=== PATIENT | male | born 1960 | race Caucasian/White ===

== ENCOUNTER 2020-07-06 08:31 | Emergency (ER) | payer OTHER, SELFPAY ==
--- NOTE | ~2020-07-06 | XR_ITS ---
XR chest 1V portable DATE: 07/06/2020 09:18 INDICATION: Chest pain TECHNIQUE: Portable AP chest on 07/06/2020 at 0928 hours COMPARISON: 05/30/2018 CT thorax FINDINGS: Normal heart size. No hilar or mediastinal enlargement. No pulmonary infiltrate or consolid ation, pleural effusion or pulmonary vascular congestion or pneumothorax. IMPRESSION: No active cardiopulmonary disease Reviewed, dictated and finalized at location A.
[2020-07-06 08:32] VITALS: BP 128/84; PULSE 56; RESP 20; TEMP 36.6; O2SAT 98
--- NOTE | 2020-07-06 08:41 | ED.DIZZY ---
HPI - Dizziness General Chief Complaint: Chest Pain Stated Complaint: vomiting dizzy Time Seen by Provider: 07/06/20 08:45 Source: patient Mode of arrival: ambulatory Limitations: no limitations History of Present Illness HPI Narrative: 59-year-old man with a history of type 2 diabetes, smoking, vertigo and Palacios's palsy comes in today complaining of chest pressure in the left side of his chest that radiates to his left arm. States that he feels dizzy and has at times felt nauseated had vomiting and sweating. He denies prior similar symptoms except for intermittent vertigo. He denies shortness of breath. States he feels no abdominal pain and has had no fever, cough or cold symptoms, diarrhea, dysuria, hematuria, back pain, or syncope. MD elicited complaint: dizziness and vertigo Pertinent past history: other ( Vertigo, left Palacios's palsy) Onset (ago): hour(s) (11) Timing: sudden onset Severity: moderate Description: other ( pressure radiating to left arm above the elbow.) Context: at rest Relieving factors: nothing Associated symptoms: nausea, vomiting, diaphoresis and chest pain Associated neuro symptoms: gait ataxia ( Intermittent mild) Related Data Home Medications Medication Instructions Recorded Confirmed albuterol sulfate 2 puff INHALATION DAILY 07/06/20 07/06/20 Allergies Allergy/AdvReac Type Severity Reaction Status Date / Time No Known Allergies Allergy Verified 07/06/20 08:45 Review of Systems Review of Systems: All systems reviewed & are unremarkable except as noted in HPI and below Constitutional: Constitutional: Denies chills and Denies fever(s) Eyes: Eyes: Denies change in vision and Denies photophobia ENT: Denies dysphagia, Denies nasal congestion and Denies sore throat Cardiovascular: Cardiovascular: Reports as per HPI, Reports chest pain and Reports radiating jaw, neck or arm pain Respiratory: Respiratory: Denies cough and Denies dyspnea Gastrointestinal: Gastrointestinal: Denies abdominal pain, Denies diarrhea, Reports nausea and Reports vomiting Genitourinary: Genitourinary: Denies hematuria and Denies dysuria Musculoskeletal: Musculoskeletal: Denies back pain, Denies arthralgias and Denies joint swelling Integumentary/Breasts: Skin/Breast: Denies pruritus, Denies erythema and Denies rash Neurologic: Reports vertigo, Reports dizziness, Denies syncope, Reports focal weakness ( chronic left facial.) and Denies numbness Hematologic/Lymphatic: Hematologic/Lymphatic: Denies easy bleeding and Denies easy bruising Allergic/Immunologic: Allergic/Immunologic: Denies lip swelling and Denies throat swelling PMFSH Past Medical History Medical History (Updated 07/06/20 @ 09:19 by Tato Galeas MD) Left-sided Palacios's palsy T2DM (type 2 diabetes mellitus) unable to tolerate metformin Vertigo Surgical History Surgical History (Updated 07/06/20 @ 09:19 by Tato Galeas MD) H/O hernia repair Social History Social History (Updated 07/06/20 @ 09:13 by Tato Galeas MD) Smoking status: Current every day smoker Alcohol intake: never Substance use: never Living arrangements: with family Occupation/Education: occupation 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 Exam Const: General: healthy appearing and alert; No diaphoretic Orientation/consciousness: patient oriented x3 Limitations: no limitations Other: Mild acute distress. HENMT: Head: normal to inspection Ears: TM's normal bilaterally and EAC's normal General nose exam: Normal nares present Mouth: Yes moist mucous membranes Throat: posterior oropharynx normal Other: Very mild left facial paresis Eyes: Conjunctivae: conjunctivae normal Pupils: Equal, round and reactive pupils present EOM: EOMs intact bilaterally Chest: Chest palpation & inspection: normal inspection of the chest and abnormal inspection of the chest Resp: Effort & Inspection: normal respiratory effort and
--- NOTE | 2020-07-06 08:44 | ECG_ITS ---
Measurements Intervals [place] Rate: P: [place]: QRS: QRSD: T: QT: QTc: Interpretive Statements SINUS RHYTHM WITH FIRST DEGREE AV BLOCK INFERIOR ST ELEVATION MYOCARDIAL INFARCT- ACUTE BASELINE ARTIFACT- II, AVL, AVF ABNORMAL ECG Electronically Signed On 07-07-2020 12:31:21 CDT by Ahmet ALBERTS
[2020-07-06 08:58] LABS: Basophils Absolute Auto 0.06 K/mm3 (0.00-0.10); Basophils Percent Auto 0.6 % (0.0-1.0); Eosinophils Absolute Auto 0.06 K/mm3 (0.02-0.50); Eosinophils Percent Auto 0.6 % (1.0-6.0); Hemoglobin 16.4 g/dL (14.0-18.0); Immature Granulocyte Absolute 0.02 K/mm3 (0.00-0.00); Immature Granulocyte Percent A 0.2 % (0.0-0.0); Lymphocytes Absolute Auto 2.08 K/mm3 (1.10-4.50); Lymphocytes Percent Auto 21.1 % (18.0-42.0); Mean Corpuscular HGB Conc 33.5 g/dL (32.0-36.0); Mean Corpuscular Hemoglobin 32.3 pg (27.0-31.0); Mean Corpuscular Volume 96.6 fL (78.0-102.0); Mean Platelet Volume 9.7 fl (8.7-11.0); Monocytes Absolute Auto 0.73 K/mm3 (0.10-0.90); Monocytes Percent Auto 7.4 % (2.0-11.0); Neutrophils Absolute Auto 6.9 K/mm3 (1.7-7.2); Neutrophils Percent Auto 70.1 % (50.0-70.0); Platelet Count Result 234 K/mm3 (150-420); Red Blood Count 5.07 M/mm3 (4.70-6.10); Red Cell Distribution Width 13.2 % (11.6-14.4); White Blood Count 9.8 K/mm3 (4.8-10.8)
[2020-07-06 09:02] VITALS: PULSE 62
[2020-07-06] MEDS: ASPIRIN 81 MG CHEWABLE TABLET 324 MG PO (09:06)
[2020-07-06] MEDS: ENOXAPARIN 100 MG/ML SYRINGE SUB-Q (09:07)
[2020-07-06 09:12] LABS: Partial Thromboplastin Time 25.6 SEC (23.90-30.70); Prothrombin Time 10.7 Seconds (9.50-12.10)
[2020-07-06 09:15] VITALS: BP 122/64; PULSE 54; RESP 20; TEMP 36.9; O2SAT 96
[2020-07-06 09:17] LABS: D Dimer 0.59 mg/L (0.19-0.50)
--- NOTE | 2020-07-06 09:19 | PC.NURSE ---
call to [facility] at 0[address] dr black spoke with dr higuera, pt to transfer directly to veterinary laboratory diagnostician,
[2020-07-06 09:20] LABS: Alanine Aminotransferase 88 U/L (16-63); Albumin Level 3.9 g/dL (3.4-5.0); Alkaline Phosphatase 52 U/L (46-116); Anion Gap 8 mmol/L (8-16); Aspartate Amino Transferase 55 U/L (15-37); Bilirubin,Total 0.4 mg/dL (0.00-1.00); Blood Urea Nitrogen 15 mg/dL (7-18); Calcium 9.1 mg/dL (8.5-10.1); Carbon Dioxide 28 mmol/L (21-32); Chloride 99 mmol/L (98-108); Estimated CRCL calculation 69 ml/min; Estimated Glomerular Filt Rate 58; Glucose 190 mg/dL (70-99); NT Pro B Type Natriuretic Pept 583 pg/mL (0-125); Osmolality Calculated 285 mOsm/kg (285-295); Potassium 4.7 mmol/L (3.5-5.1); Sodium 135 mmol/L (136-145); Total Protein 7.5 g/dL (6.4-8.2)
--- NOTE | 2020-07-06 09:20 | PC.NURSE ---
saas here for transport, report to beata. pt loaded.
== END 2020-07-06 09:26 | disposition short-term general hospital (02) ==
PROVIDERS: Emergency Provider Emergency Medicine; PCP Family Medicine
DX: I21.3 ST elevation (STEMI) myocardial infarction of unspecified site (principal); G51.0 Bell's palsy; F17.200 Nicotine dependence, unspecified, uncomplicated; E11.9 Type 2 diabetes mellitus without complications
CPT/HCPCS: 36415; 71045; 80053; 83880; 84484; 85025; 85380; 85610; 85730; 93005; 96372; 99285; A9270; J1650

== ENCOUNTER 2020-07-06 11:37 | Inpatient (IN) | payer OTHER, SELFPAY ==
[2020-07-06] VITALS (27 sets, daily range): BP systolic 88–155; BP diastolic 59–100; PULSE 50–88; RESP 12–32; TEMP 36.1–36.9; O2SAT 93–100; BMI 33.3
--- NOTE | ~2020-07-06 | XR_ITS ---
EXAMINATION: XR chest 1V portable DATE: 07/08/2020 16:10 INDICATION: Pacer placement. TECHNIQUE: A single frontal view of the chest was obtained. COMPARISON: Chest single view 07/06/2020, chest CT 05/30/2018 FINDINGS: There is mild atelectasis at left lung base. No pleural effusion or pneumothorax. The heart size is normal. There is a left chest wall pacer with leads in the right atrium and right ventricle. IMPRESSION: 1. Mild atelectasis at left lung base. Reviewed, dictated and finalized at location A.
--- NOTE | ~2020-07-06 | XR_ITS ---
EXAMINATION: XR chest 2V DATE: 07/09/2020 07:49 INDICATION: Pacemaker insertion TECHNIQUE: PA and lateral views of the chest are obtained. COMPARISON: 07/08/2020 FINDINGS: The lungs are free of acute opacities. There is no pleural effusion or pneumothorax. The ca rdiomediastinal silhouette is normal. There is mild thoracic spondylosis. A chronic L1 compression fr acture is noted. A dual-lead cardiac pacemaker of the left chest wall ends with leads in expected loc ations. IMPRESSION: 1. No acute cardiopulmonary abnormality. Reviewed, dictated and finalized at location A.
[2020-07-06] MEDS: EPTIFIBATIDE 0.75 MG/ML 75 MG/100 ML VIAL 17.12 MG IV CONT ×3 (11:00→21:41)
--- NOTE | 2020-07-06 11:37 | ECG_ITS ---
Measurements Intervals [place] Rate: 54 P: 29 UT: 316 QRS: -22 QRSD: 91 T: 102 QT: 435 QTc: 413 Interpretive Statements SINUS RHYTHM WITH SECOND DEGREE AV BLOCK TYPE I ([place] WITH 3:2, 2:1, 3:2 AV CO CONDUCTION) INFERIOR ST ELEVATION MYOCARDIAL INFARCT ABNORMAL ECG Electronically Signed On 07-07-2020 7:25:22 CDT by Ahmet Borden D.O.
--- NOTE | 2020-07-06 11:40 | ADMGEN ---
This patient, Emmanuel Verduzco Jr., was admitted to Intensive Care Unit-11. Patient/family oriented to hospital policies and general routines including ID bracelet, bed and alarms, visiting hours, pain management, procedures, bathroom and other care routines, personal items, smoking policy, room service/diet, and visiting hours. Information on how to activate the Rapid Response Team has been discussed. Patient/Family are encouraged to report perceived risks to care and to ask questions if they do not understand what they are told or what they should do.
--- NOTE | 2020-07-06 11:41 | PM.IMHP ---
H&P: HPI History of Present Illness Date/Time: 07/06/20 11:41 Chief Complaint: Chest pain Narrative: This is a 59-year-old man who apparently does not have any previous history of cardiac pathology who is transferred from [place] is a emergency room this morning in the setting of acute inferior wall myocardial infarction. Patient's history is obtained briefly as he is being prepared for emergency coronary angiography. He states that he was at home in his usual state of what he thinks is reasonable health and started to experience retrosternal chest pain last evening at about 11:00 p.m.. The patient for some reason thought the pain was a neurological problem. He states he thought this because in the past he had some Palacios's palsy and was suspicious mostly of a neurological issue. Because of ongoing symptoms he came to the emergency room at [place] this morning where his electrocardiogram was obviously diagnostic of acute inferior infarction. Unfortunately he presented therefore of rather late into the course of the event about 11 hours and to symptom onset. The patient's being brought to the cardiac catheterization lab in this setting. He is reporting that the chest pain that was going on through the night is still present but is starting to wane. In this setting and emergency angiogram has been recommended. 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 Meds Home Medications and Allergies Home Medications Medication Instructions Recorded Confirmed Type albuterol sulfate 2 puff INHALATION DAILY 07/06/20 07/06/20 History Allergies Allergy/AdvReac Type Severity Reaction Status Date / Time No Known Allergies Allergy Verified 07/06/20 08:45 Exam Const: General: no acute distress and uncomfortable Other: Well-developed well-nourished white male appears to be a little bit older than his stated age reporting mild residual chest pain appears to be otherwise rather comfortable. HENMT: Mouth: Yes moist mucous membranes Eyes: Sclera: sclerae normal Pupils: Equal, round and reactive pupils present Neck: Neck: supple and no JVD Thyroid: thyroid normal Resp: Effort & Inspection: normal respiratory effort Auscultation: clear to auscultation bilaterally Cardio: Rate: regular rate and bradycardic Rhythm: regular rhythm GI: GI Palp: Yes Soft to palpation Auscultation: normal bowel sounds Skin: General skin exam: normal color Neuro: Cognition (Neuro): normal cognition Extrem: General: normal to inspection Assessment and Plan Additional Plan 59-year-old man with: Acute inferior wall myocardial infarction with risk factors of non insulin-dependent diabetes and heavy cigarette smoking. Patient presents unfortunately very late in the course of the event. Emergency angiography and revascularization are now planned. Fortunato Trevino MD FACC
--- NOTE | 2020-07-06 11:46 | WPDCARDPROC ---
Cardiac Cath Procedure Note Date of procedure:: 07/06/20 Performing physician:: Fortunato Trevino MD Indication:: Inferior wall ST-elevation Brief clinical history:: This is a 59-year-old patient with a history of type 2 diabetes and heavy cigarette smoking presenting late in the course of acute inferior wall myocardial infarction with chest pain that began 11 hours prior to arrival here at the hospital. Procedure Procedure performed:: Emergency coronary angiography Emergency PCI FRANCISCO) to the proximal/ostial right coronary artery. Attempt at extraction thrombectomy Distal balloon PTCA of clotted RPDA Sedation/Medication given:: Fentanyl 50 mg Versed 2 mg Access site:: Right femoral artery Estimated blood loss:: 15-20 cc Procedure note:: Patient was brought to the cardiac catheterization lab in the emergency setting from the ambulance stretcher. He was fully clothed and had to be disrobed in the carry a laboratory manager. Following this he was placed on the laboratory manager table in the supine position the right femoral triangle was prepped and draped in the usual sterile fashion. Anesthesia was provided with 1% lidocaine infiltrated locally. After this the right femoral artery was punctured and a 6 Belarusian vascular sheath was placed. I used a 5 Bel[place]ian FL4 catheter to engage and inject the left coronary artery in multiple projections. I then used a 6 [place]ian JR4 guiding catheter to engage and inject the right coronary artery. Following this PCI of the right coronary artery was recommended and carried out as detailed below. Prior to PCI the patient received 180 mg of oral Brilinta and he was anticoagulated with bolus and infusion of Angiomax for procedural anticoagulation. During the procedure the patient received 2 boluses of intracoronary Integrilin as well as started on IV Integrilin infusion. Following completion of the PCI the patient's sheath was sutured into position he was takes ICU for post OK PCI recovery in critical condition. Following the procedure he was free of chest pain and had no cardiovascular complaints. Findings:: Hemodynamics: Blood pressure was 142/82 the left ventricle was not entered during this procedure for LV pressure The left main coronary artery is nicely patent The left anterior descending is a medium caliber vessel extending down to the apex there is mild luminal irregularity in the LAD but no flow-limiting disease was identified. The circumflex is a medium caliber artery giving rise to 2 marginal branches. There is a focal discrete 80% stenosis in the 2nd OM which is the larger of the 2 marginal branches. The right coronary artery is 100% occluded proximally. There is about 70% stenosis proximal to the total occlusion just after the ostium of the vessel as well. Intervention: As stated above I initially engaged the right coronary artery with 6 Bel[place]ian JR4 guiding catheter. Following this the occlusion was crossed easily with a 0.014 BMW guidewire balloon inflation resulted in pentecostal of flow into the entire right coronary artery system. Angiographically the rest of the vessel could that be seen and it was obvious there was a large thrombotic burden in the trunk of the vessel distal to the total occlusion. The procedure was technically challenging at this point because the guiding catheter was occluding the proximal vessel because of the proximal stenosis described above. On 2 occasions the position of the catheter was lost and the wire had to be repositioned into the distal RCA. At that point I selected to change guiding catheters 1st attempted to engage the artery with a AL1 guide which was unsuccessful following this I used a AR1 guide for the rest of the procedure. Vessel was then rewired. It was obvious angiographically at that point that there was thrombotic embolization of both the RPDA and RPL branches. The RPDA was occluded in the mid to distal portion the RPL branch in the midportion as well. I placed a 2nd BMW wir
[2020-07-06] MEDS: SODIUM CHLORIDE 0.9% IV 1,000 ML 125 ML IV CONT (12:32)
--- NOTE | 2020-07-06 13:03 | WPDCNINT ---
Assessment and Plan Assessment and plan (1) ST elevation myocardial infarction (STEMI): Qualifiers: Involved coronary artery: unspecified coronary artery Qualified Code(s): I21.3 - ST elevation (STEMI) myocardial infarction of unspecified site Code(s): I21.3 - ST elevation (STEMI) myocardial infarction of unspecified site Status: Acute Assessment and Plan: Patient with acute inferior wall CO status post PTCA/PCI with FRANCISCO x2 to the occluded portion of the proximal RCA. P -atient had large thrombotic but because of the late presentation which unfortunately resulted distal embolization of both the RPDA and RPL branches. Some flow was restored into the RPDA with balloon dilatation. -He will continue to be on Integrilin for 24 hours. Patient also has an unrelated 80% stenosis of the OM 2 which he may be a candidate for PCI and states fashion at the later date. Patient did go into a second-degree AV block in the labor economics teacher. -continue intact infusion for total of 24 hours until 11:00 a.m. on 07/07/2020 (2) T2DM (type 2 diabetes mellitus): Code(s): E11.9 - Type 2 diabetes mellitus without complications Status: Acute Assessment and Plan: Controlled with diet exercise (3) Tobacco abuse: Code(s): Z72.0 - Tobacco use Status: Acute Assessment and Plan: Patient has a 60 pack year history of smoking he used to smoke 2 packets per day into 30 years -denies any illicit drug use or alcohol -I did addictions counselor assistant him on cessation of smoking and also discussed with him the details along with his the bad effects of nicotine in the cigarettes. Patient stated he is going to think of quitting smoking -nicotine patch has been ordered Additional Plan Discussed with patient and his and updated them with patient's condition plan of. Code status: Full code Critical care time spent: 43 minutes This dictation may have been done utilizing a voice recognition system. Attempts have been made to correct errors. However, there may be uncorrected grammatical, spelling, and recognition errors present. Due to a high probability of clinically significant, life threatening deterioration, the patient required my highest level of preparedness to intervene emergently and I personally spent this critical care time directly and personally managing the patient. This critical care time included obtaining a history; examining the patient; pulse oximetry; ordering and review of studies; arranging urgent treatment with development of a management plan; evaluation of patient's response to treatment; frequent reassessment; and discussions with other providers. It was exclusive of separately billable procedures and treating other patients and teaching time. Please see Assessment and Plan section and the rest of the note for further information on patient assessment and treatment Bit Sharpener Operator Consult Note Consult date: 07/06/20 Time Seen: 12:04 Reason for consult: Acute inferior wall CO status post PTCA/PCI with FRANCISCO x2 of the occluded portion of the proximal RCA. HPI: Emmanuel Verduzco Jr. is a 59 year old male borderline type 2 diabetes, tobacco abuse, no known previous cardiac history presented from [place] [facility] with the complaint of that radiated to his left arm. Pain was associated with dizziness, nausea, vomiting and diaphoresis. He denies any shortness of breath. Patient developed and had these ongoing symptoms since 11:00 p.m. on 07/05/2020. EKG in the [place] [facility] showed ST T changes. Patient was transferred to the ICU for further management Patient seen and examined the ICU, patient is a pleasant gentleman, denies any chest pain, shortness of breath, dizziness, nausea, vomiting. Patient states that he smokes 2 pack of cigarettes per day for 40 years, denies any alcohol use or illicit drug use. 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
[2020-07-06 18:09] LABS: Troponin I > 80.000 ng/mL (0.000-0.034)
[2020-07-06] MEDS: MORPHINE SULFATE (*CRX) 2 MG/ML INJ IV PUSH (20:40)
[2020-07-06] MEDS: TICAGRELOR 90 MG TABLET PO (20:40)
[2020-07-07] VITALS (15 sets, daily range): BP systolic 99–121; BP diastolic 52–75; PULSE 46–64; RESP 14–29; TEMP 36.4–37; O2SAT 93–98
--- NOTE | 2020-07-07 | ECHO_ITS ---
Patient Info Name: Emmanuel Verduzco Age: 59 years : 1960 Gender: Male Ht: 70 in Wt: 226 lbs BSA: 2.28 m2 HR: 49 bpm BP: 102 / 68 mmHg Heart Rhythm: Sinus Rhythm Technical Quality: Fair Exam Date: 07/07/2020 9:45 AM Exam Location: [facility] Pulmonary Patient Status: Inpatient Admit Date: 07/06/2020 Staff Ordering Physician: Fortunato Trevino MD Hand Cultivator: Cecelia Caputo RDCS Attending Provider: Fortunato Trevino MD Referring Physician: Uriel YOUNGBLOOD; Exam Type: CA echo doppler color flow Study Info Indications I45.5 - Other specified heart block I23.8 - Other current complications following acute myocardial infarction Complete two-dimensional, color flow and Doppler transthoracic echocardiogram is performed. Summary 1. Complete two-dimensional, color flow and Doppler transthoracic echocardiogram is performed. 2. Left ventricular systolic function is mildly reduced, estimated at 45-50%. 3. The inferior segment is akinetic. 4. Right ventricular chamber dimension is moderately enlarged. 5. Right ventricular systolic function is reduced. 6. There is trace mitral valve regurgitation. Left Ventricle Left ventricular chamber dimension is normal. Left ventricular systolic function is mildly reduced, estimated at 45-50%. The left ventricular diastolic function is normal. The inferior segment is akinetic. Right Ventricle Right ventricular chamber dimension is moderately enlarged. Right ventricular systolic function is reduced. Left Atria Left atrial chamber dimension is normal. Right Atria Right atrial chamber dimension is mildly enlarged. Aortic Valve The aortic valve is normal. Pulmonic Valve The pulmonic valve is not well visualized. Mitral Valve The mitral valve has normal leaflets. There is trace mitral valve regurgitation. Tricuspid Valve The tricuspid valve leaflets are normal. Pericardium/Pleural The pericardium appears normal. Aorta The aortic root size at the sinus of Valsalva is normal. Left Ventricular Outflow Tract Name Value Normal LVOT 2D LVOT Diameter 2.0 cm LVOT Doppler LVOT Peak Velocity 92 cm/s LVOT Peak Gradient 3 mmHg LVOT Mean Gradient 2 mmHg LVOT VTI 18 cm LVOT VTI/AV VTI Ratio 1.1 LVOT Stroke Volume 59 ml LVOT CO 2.8 l/min LVOT CI 1.3 l/min/m2 Pulmonic Valve Name Value Normal RVOT Doppler RVOT Peak Gradient 1 mmHg PV Doppler PV Peak Velocity 89 cm/s PV Peak Gradient 3 mmHg Mitral Lyndsey
--- NOTE | 2020-07-07 00:51 | ECG_ITS ---
Measurements Intervals [place] Rate: 64 P: [place]: 0 QRS: -38 QRSD: 98 T: 114 QT: 383 QTc: 397 Interpretive Statements SINUS RHYTHM WITH FIRST DEGREE AV BLOCK VENTRICULAR PREMATURE COMPLEXES LOW QRS VOLTAGE IN PRECORDIAL LEADS INFERIOR ST ELEVATION MYOCARDIA INFARCT- ACUTE ABNORMAL ECG Electronically Signed On 07-07-2020 7:27:38 CDT by Ahmet Borden D.O.
--- NOTE | 2020-07-07 01:00 | ECG_ITS ---
Measurements Intervals [place] Rate: 58 P: SD: 0 QRS: -38 QRSD: 96 T: 114 QT: 387 QTc: 381 Interpretive Statements SINUS RHYTHM WITH 2ND DEGREE AV BLOCK, MOBITZ TYPE II INFERIOR ST ELEVATION MYOCARDIAL INFARCT- ACUTE ABNORMAL ECG Electronically Signed On 07-07-2020 7:31:40 CDT by Ahmet Borden D.O.
[2020-07-07] MEDS: EPTIFIBATIDE 0.75 MG/ML 75 MG/100 ML VIAL 17.12 MG IV CONT ×2 (03:45→09:50)
[2020-07-07 04:35] LABS: Basophils Percent Auto 0.4 % (0.2-1.2); Eosinophils Absolute Auto 0.1 K/mm3 (0-0.3); Eosinophils Percent Auto 0.7 % (0-4.4); Hemoglobin 13.9 g/dL (14.0-18.0); Immature Granulocyte Absolute 0.03 K/mm3 (0.00-0.031); Immature Granulocyte Percent A 0.3 % (0-0.5); Lymphocytes Absolute Auto 2.13 K/mm3 (0.9-3.2); Lymphocytes Percent Auto 19.9 % (18.3-44.2); Mean Corpuscular HGB Conc 33.9 g/dl (32-36); Mean Corpuscular Hemoglobin 32.6 pg (26-34); Mean Corpuscular Volume 96.2 fl (80-100); Mean Platelet Volume 10.2 fl (7.4-10.4); Monocytes Absolute Auto 1.2 K/mm3 (0.1-0.6); Monocytes Percent Auto 10.7 % (2.6-8.5); Neutrophils Absolute Auto 7.3 K/mm3 (1.3-6.7); Platelet Count Result 199 k/mm3 (150-375); Red Blood Count 4.26 M/mm3 (4.6-6.20); Red Cell Distribution Width 13.2 % (11.5-14.5); White Blood Count 10.7 K/mm3 (4.5-10.0)
[2020-07-07 04:46] LABS: Anion Gap 4 mmol/L (8-16); Blood Urea Nitrogen 13 mg/dL (9-20); Calcium 8.8 mg/dL (8.4-10.2); Carbon Dioxide 27 mmol/L (22-30); Chloride 104 mmol/L (98-107); Estimated CRCL calculation 98 ml/min; Estimated Glomerular Filt Rate > 60; Glucose 172 mg/dL (75-110); Magnesium 1.7 mg/dL (1.6-2.3); Potassium 4.3 mmol/L (3.4-5.0); Sodium 135 mmol/L (137-145)
--- NOTE | 2020-07-07 05:11 | ECG_ITS ---
Measurements Intervals [place] Rate: P: [place]: QRS: QRSD: T: QT: QTc: Interpretive Statements SINUS RHYTHM WITH FIRST DEGREE AV BLOCK INFERIOR ST ELEVATION MYOCARDIAL INFARCT- ACUTE BASELINE ARTIFACT- II, AVL, AVF ABNORMAL ECG Electronically Signed On 07-07-2020 12:31:21 CDT by Ahmet ALBERTS
--- NOTE | 2020-07-07 06:32 | ECG_ITS ---
Measurements Intervals [place] Rate: 45 P: [place]: 0 QRS: -32 QRSD: 95 T: 116 QT: 477 QTc: 415 Interpretive Statements SINUS RHYTHM WITH COMPLETE HEART BLOCK JUNCTION ESCAPE RHYTHM INFERIOR ST ELEVATION MYOCARDIAL INFARCT- ACUTE BASELINE ARTIFACT- I, II, III ABNORMAL ECG Electronically Signed On 07-07-2020 9:29:29 CDT by Ahmet Borden D.O.
--- NOTE | 2020-07-07 07:26 | PM.PNCARD ---
Progress Note: A&P Additional Plan 59-year-old man with: Coronary artery disease inferior wall infarction presenting very late in the course of the event. Despite what we can do with regarding revascularization he has had a very high troponin rise which I am not surprised about he also has developed complete heart block. It is likely that he will require implantation of a pacemaker before discharge for this reason. Obviously beta-blockers will be held in this situation. I would like to watch this for at least another [address] his device. There is a possibility with the 1st 48 hours after the event this could resolve but it is unlikely. Will give a dose of IV Lasix this morning as he has some pulmonary rales on exam Fortunato Trevino MD [facility] Subjective Date/time seen: Date of service: 07/07/20 07:26 Interval history: Follow-up visit in this 59-year-old man with: Coronary artery disease presenting with acute inferior wall myocardial infarction unfortunately late in the course of the event. Patient underwent angiographically successful PCI with stenting of the proximal occluded segment of the RCA. There was significant thrombosis in the vessel with distal embolization of both the RPDA and RPL. He has been treated with intravenous Integrilin for that. He also has a unrelated mid circumflex lesion of about 80% in the OM branch. This morning the patient feels and looks fairly well. He was complaining of significant back pain which is somewhat better now that he is able to get up in a chair. No further chest pain. Feels slightly short of breath this morning. The patient had second-degree AV block Mobitz type 1 immediately upon leaving the cardiac catheterization lab. Overnight that has progressed to complete heart block. He has a narrow QRS escape rhythm with a heart rate of a about 45. Spoke to the patient at length about this as a consequence of his RCA infarction. If this persists obviously he will require a pacemaker device before discharge. Exam Const: General: comfortable and no acute distress Other: Well-developed well-nourished white male seated in a chair HENMT: Mouth: Yes moist mucous membranes Eyes: Sclera: sclerae normal Pupils: Equal, round and reactive pupils present Neck: Neck: supple and no JVD Thyroid: thyroid normal Other: Normal carotid upstrokes no apparent bruits over the neck Resp: Effort & Inspection: normal respiratory effort Auscultation: clear to auscultation bilaterally Cardio: Rate: bradycardic Rhythm: regular rhythm GI: GI Palp: Yes Soft to palpation Auscultation: normal bowel sounds Skin: General skin exam: normal color Neuro: Cognition (Neuro): normal cognition Extrem: General: normal to inspection Objective Data Vital Signs Vital Signs: Vital Signs - 24 hr 07/06/20 11:37 07/06/20 12:00 07/06/20 12:01 Temperature 36.1 C L Pulse Rate 50 L 58 L 57 L Respiratory Rate 18 14 Blood Pressure 126/76 115/81 Pulse Oximetry 97 98 07/06/20 12:22 07/06/20 13:22 07/06/20 14:00 Temperature Pulse Rate 57 L 75 71 Respiratory Rate 22 H 18 Blood Pressure 124/82 144/98 H Pulse Oximetry 96 98 07/06/20 14:46 07/06/20 14:51 07/06/20 14:56 Temperature Pulse Rate 74 67 75 Respiratory Rate 20 21 H 18 Blood Pressure 148/96 H 136/98 H 155/93 H Pulse Oximetry 100 99 99 07/06/20 15:00 07/06/20 15:05 07/06/20 15:10 Temperature Pulse Rate 75 79 76 Respiratory Rate 18 32 H 19 Blood Pressure 145/96 H 137/95 H 148/93 H Pulse Oximetry 99 99 98 07/06/20 15:15 07/06/20 15:21 07/06/20 15:22 Temperature Pulse Rate 73 65 79 Respiratory Rate 16 16 20 Blood Pressure 144/99 H 133/94 H 135/88 Pulse Oximetry 100 100 100 07/06/20 15:46 07/06/20 16:00 07/06/20 17:00 Temperature Pulse Rate 78 74 75 Respiratory Rate 14 20 Blood Pressure 136/85 142/100 H Pulse Oximetry 100 100 07/06/20 17:33 07/06/20 18:00 07/06/20 19:00 Te
[2020-07-07] MEDS: FUROSEMIDE INJ 40 MG/4 ML VIAL 20 MG IM (07:50)
[2020-07-07] MEDS: TICAGRELOR 90 MG TABLET PO ×2 (07:50→20:54)
[2020-07-07] MEDS: ASPIRIN 81 MG CHEWABLE TABLET PO (07:50)
[2020-07-07] MEDS: ROSUVASTATIN 10 MG TABLET 20 MG PO (07:50)
[2020-07-07] MEDS: lisinopriL 5 MG TABLET PO (07:51)
--- NOTE | 2020-07-07 09:47 | WPDINTPN ---
Progress Note: A&P Assessment and Plan (1) ST elevation myocardial infarction (STEMI): Qualifiers: Involved coronary artery: unspecified coronary artery Qualified Code(s): I21.3 - ST elevation (STEMI) myocardial infarction of unspecified site Code(s): I21.3 - ST elevation (STEMI) myocardial infarction of unspecified site Status: Inactive Assessment and Plan: Patient with acute inferior wall NC status post PTCA/PCI with FRANCISCO x2 to the occluded portion of the proximal RCA. P -atient had large thrombotic but because of the late presentation which unfortunately resulted distal embolization of both the RPDA and RPL branches. Some flow was restored into the RPDA with balloon dilatation. -He will continue to be on Integrilin for 24 hours. Patient also has an unrelated 80% stenosis of the OM 2 which he may be a candidate for PCI and states fashion at the later date. 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 -patient on Integrilin infusion till 11:00 a.m. this morning (2) T2DM (type 2 diabetes mellitus): Code(s): E11.9 - Type 2 diabetes mellitus without complications Status: Acute Assessment and Plan: Controlled with diet exercise (3) Tobacco abuse: Code(s): Z72.0 - Tobacco use Status: Acute Assessment and Plan: Patient has a 60 pack year history of smoking he used to smoke 2 packets per day into 30 years -denies any illicit drug use or alcohol -I did family service counselor him on cessation of smoking and also discussed with him the details along with his the bad effects of nicotine in the cigarettes. Patient stated he is going to think of quitting smoking -nicotine patch has been ordered (4) Complete heart block: Code(s): I44.2 - Atrioventricular block, complete Status: Acute Assessment and Plan: Patient progressed to complete AV block overnight, does have narrow QRS escape rhythm with a heart rate of 45-50 beats per minute. -cardiology has evaluated the patient -recommended watching him for the next 24 hours and decide if he needs a pacemaker implantation Additional Plan Discussed with patient and his and updated them with patient's condition plan of. Code status: Full code Critical care time spent: 32 minutes This dictation may have been done utilizing a voice recognition system. Attempts have been made to correct errors. However, there may be uncorrected grammatical, spelling, and recognition errors present. Due to a high probability of clinically significant, life threatening deterioration, the patient required my highest level of preparedness to intervene emergently and I personally spent this critical care time directly and personally managing the patient. This critical care time included obtaining a history; examining the patient; pulse oximetry; ordering and review of studies; arranging urgent treatment with development of a management plan; evaluation of patient's response to treatment; frequent reassessment; and discussions with other providers. It was exclusive of separately billable procedures and treating other patients and teaching time. Please see Assessment and Plan section and the rest of the note for further information on patient assessment and treatment Subjective Date/time seen: 07/07/20 09:47 Interval history: Reason for consult: Acute inferior wall NC status post PTCA/PCI with FRANCISCO x2 of the occluded portion of the proximal RCA. 07/08/2019: Patient has been bradycardic through the night with second-degree AV block Mobitz type 1, progressed to complete heart block overnight. Patient has narrow QRS escape rhythm with a heart rate of 45-50 beats per minute. Is denies chest, nausea, vomiting, diaphoresis. Patient does complains of some cough and shortness of breath. Patient is sitting up in the chair waiting breakfast awaiting breakfast Review of Systems Review of Systems: All systems reviewed & are unremarkable
[2020-07-08] VITALS (21 sets, daily range): BP systolic 94–113; BP diastolic 38–75; PULSE 53–84; RESP 12–94; TEMP 36.3–37.1; O2SAT 22–97
[2020-07-08 05:28] LABS: INR 1.1; Prothrombin Time 14.6 Seconds (11.1-14.7)
[2020-07-08 05:29] LABS: Partial Thromboplastin Time 30.5 SECONDS (22.3-36.8)
[2020-07-08 05:38] LABS: Basophils Percent Auto 0.2 % (0.2-1.2); Eosinophils Absolute Auto 0.1 K/mm3 (0-0.3); Eosinophils Percent Auto 0.6 % (0-4.4); Hematocrit 36.2 % (42.0-52.0); Hemoglobin 12.6 g/dL (14.0-18.0); Immature Granulocyte Absolute 0.06 K/mm3 (0.00-0.031); Immature Granulocyte Percent A 0.5 % (0-0.5); Lymphocytes Absolute Auto 2.27 K/mm3 (0.9-3.2); Lymphocytes Percent Auto 18.8 % (18.3-44.2); Mean Corpuscular HGB Conc 34.8 g/dl (32-36); Mean Corpuscular Volume 94.8 fl (80-100); Mean Platelet Volume 10.6 fl (7.4-10.4); Monocytes Absolute Auto 1.6 K/mm3 (0.1-0.6); Monocytes Percent Auto 13.2 % (2.6-8.5); Neutrophils Absolute Auto 8.1 K/mm3 (1.3-6.7); Neutrophils Percent Auto 66.7 % (45.5-73.1); Platelet Count Result 184 k/mm3 (150-375); Red Blood Count 3.82 M/mm3 (4.6-6.20); Red Cell Distribution Width 13.2 % (11.5-14.5); White Blood Count 12.1 K/mm3 (4.5-10.0)
[2020-07-08 05:40] LABS: Alanine Aminotransferase 68 U/L (4-50); Albumin Level 3.7 g/dL (3.5-5.1); Alkaline Phosphatase 38 U/L (38-126); Anion Gap 6 mmol/L (8-16); Aspartate Amino Transferase 184 U/L (17-59); Blood Urea Nitrogen 23 mg/dL (9-20); Calcium 8.7 mg/dL (8.4-10.2); Carbon Dioxide 26 mmol/L (22-30); Chloride 101 mmol/L (98-107); Estimated CRCL calculation 73 ml/min; Estimated Glomerular Filt Rate > 60; Glucose 161 mg/dL (75-110); Magnesium 1.7 mg/dL (1.6-2.3); Phosphorus 2.8 mg/dL (2.5-4.5); Potassium 3.7 mmol/L (3.4-5.0); Sodium 133 mmol/L (137-145)
--- NOTE | 2020-07-08 07:10 | WPDINTPN ---
Progress Note: A&P Assessment and Plan (1) ST elevation myocardial infarction (STEMI): Qualifiers: Involved coronary artery: unspecified coronary artery Qualified Code(s): I21.3 - ST elevation (STEMI) myocardial infarction of unspecified site Code(s): I21.3 - ST elevation (STEMI) myocardial infarction of unspecified site Status: Inactive Assessment and Plan: Patient with acute inferior wall MS status post PTCA/PCI with FRANCISCO x2 to the occluded portion of the proximal RCA. -patient was continued on Integrilin for 24 hours and was discontinued yesterday morning Patient also has an unrelated 80% stenosis of the OM 2 which he may be a candidate for PCI and states fashion at the later date. 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 -currently chest pain-free -continue aspirin, lisinopril, Crestor, Brilinta (2) Complete heart block: Code(s): I44.2 - Atrioventricular block, complete Status: Acute Assessment and Plan: Patient progressed to complete AV block which has been persistent. EKG was checked this morning and was consistent -his current heart rate is in 50s and adequate blood pressure -discussed with cardiology and plan to place permanent pacemaker today -continue ICU telemetry monitoring until permanent pacemakers placed (3) T2DM (type 2 diabetes mellitus): Code(s): E11.9 - Type 2 diabetes mellitus without complications Status: Acute Assessment and Plan: Controlled with diet exercise Will add sliding scale insulin and check HbA1c (4) COPD (chronic obstructive pulmonary disease): Code(s): J44.9 - Chronic obstructive pulmonary disease, unspecified Status: Acute Assessment and Plan: Patient appears to have diagnosis of COPD and is on albuterol p.r.n. inhaler at home I will order albuterol and Spiriva (5) Tobacco abuse: Code(s): Z72.0 - Tobacco use Status: Acute Assessment and Plan: Patient has a 60 pack year history of smoking he used to smoke 2 packets per day into 30 years -denies any illicit drug use or alcohol -patient was counseled on cessation of smoking. Patient stated he is going to think of quitting smoking -nicotine patch has been ordered on patient's request Additional Plan Code status: Full code Critical care time spent: 30 minutes This dictation may have been done utilizing a voice recognition system. Attempts have been made to correct errors. However, there may be uncorrected grammatical, spelling, and recognition errors present. Due to a high probability of clinically significant, life threatening deterioration, the patient required my highest level of preparedness to intervene emergently and I personally spent this critical care time directly and personally managing the patient. This critical care time included obtaining a history; examining the patient; pulse oximetry; ordering and review of studies; arranging urgent treatment with development of a management plan; evaluation of patient's response to treatment; frequent reassessment; and discussions with other providers. It was exclusive of separately billable procedures and treating other patients and teaching time. Please see Assessment and Plan section and the rest of the note for further information on patient assessment and treatment Subjective Date/time seen: 07/08/20 0710 Overnight events reviewed. Afebrile Denies any new complaints today. Feels hungry and wants to eat. Denies any chest pain or pain at the site of cardiac catheterization. Review of system is positive for dry cough, occasional inability to take deep breaths but does not describe it as pain and states its chronic. All other systems were reviewed and were negative Vitals acceptable Continues to be in complete heart block with heart rate in 50s and adequate blood pressure. He is sitting in chair without any symptoms or complaints at this time Interval history: Ac
--- NOTE | 2020-07-08 07:42 | ECG_ITS ---
Measurements Intervals [place] Rate: 55 P: NH: 0 QRS: -23 QRSD: 95 T: 113 QT: 444 QTc: 426 Interpretive Statements SINUS RHYTHM WITH COMPLETE HEART BLOCK JUNCTIONAL ESCAPE RHYTHM DELAYED PRECORDIAL R/S TRANSITION LOW QRS VOLTAGE IN PRECORDIAL LEADS INFERIOR ST ELEVATION MYOCARDIAL INFARCT- ACUTE ABNORMAL ECG Electronically Signed On 07-08-2020 11:01:17 CDT by Ahmet Borden D.O.
[2020-07-08] MEDS: ASPIRIN 81 MG CHEWABLE TABLET PO (08:36)
[2020-07-08] MEDS: TICAGRELOR 90 MG TABLET PO ×2 (08:37→20:55)
[2020-07-08] MEDS: ROSUVASTATIN 10 MG TABLET 20 MG PO (08:37)
[2020-07-08] MEDS: lisinopriL 5 MG TABLET PO (08:37)
[2020-07-08 08:54] LABS: Hemoglobin A1C 7.1 % (<5.7)
--- NOTE | 2020-07-08 09:07 | PM.PNCARD ---
Progress Note: A&P Assessment and Plan (1) STEMI (ST elevation myocardial infarction): Code(s): I21.3 - ST elevation (STEMI) myocardial infarction of unspecified site Status: Acute Assessment and Plan: Admitted with acute inferior myocardial infarction, late presentation, 07/06/2020. Occluded RCA, significant thrombus with distal embolization, Status post [address] Trevino. Has an unrelated mid circumflex lesion in OM branch that can be intervened upon at a later date. No further chest pain Soft blood pressure; will give some IV fluids this morning prior to conscious sedation/pacemaker implant. NH complicated by complete heart block. (2) Complete heart block: Code(s): I44.2 - Atrioventricular block, complete Status: Acute Assessment and Plan: Patient continues to have complete heart block with no evidence of recovery of his conduction system. Discussed implantation of a permanent pacemaker either today or tomorrow and patient prefers to get it done today. Reviewed procedure with the patient, of function of the pacemaker, conscious sedation, and venogram. Reviewed risks of pacemaker implant with patient. These include breathing problems, allergic reactions, particularly a risk of bleeding and hematoma because of being on aspirin and Brilinta, infection, pneumothorax, cardiac puncture, need for unanticipated surgery, lead dislodgement among others. In addition since the header RV infarct it may be difficult to find an area that has good sensing and pacing thresholds. Patient desires to proceed. (3) Dysuria: Code(s): R30.0 - Dysuria Status: Acute Assessment and Plan: Complains of dark urine and some dysuria, will check a UA. (4) Tobacco abuse: Code(s): Z72.0 - Tobacco use Status: Acute Assessment and Plan: Patient uses tobacco and likely has COPD but states he is doing reasonably well without his cigarettes. Subjective Date/time seen: 07/08/20 09:07 Interval history: Follow-up visit in this 59-year-old man with: Coronary artery disease presenting with acute inferior wall myocardial infarction unfortunately late in the course of the event. Patient underwent angiographically successful PCI with stenting of the proximal occluded segment of the RCA. There was significant thrombosis in the vessel with distal embolization of both the RPDA and RPL. He has been treated with intravenous Integrilin for that. He also has a unrelated mid circumflex lesion of about 80% in the OM branch. 07/07/2020: This morning the patient feels and looks fairly well. He was complaining of significant back pain which is somewhat better now that he is able to get up in a chair. No further chest pain. Feels slightly short of breath this morning. The patient had second-degree AV block Mobitz type 1 immediately upon leaving the cardiac catheterization lab. Overnight that has progressed to complete heart block. He has a narrow QRS escape rhythm with a heart rate of a about 45. Spoke to the patient at length about this as a consequence of his RCA infarction. If this persists obviously he will require a pacemaker device before discharge. Date of service 07/08/2020: Patient feels well, some chronic shortness of breath, and has trouble lying down because of chronic back pain. No chest pain. Remains in complete heart block with an escape rhythm in the 50s. Says he has dark urine, with some burning, wonders if there is any blood in it. Hungry! No h/o clavicular fracture. Echo: 1. Complete two-dimensional, color flow and Doppler transthoracic echocardiogram is performed. 2. Left ventricular systolic function is mildly reduced, estimated at 45-50%. 3. The inferior segment is akinetic. 4. Right ventricular chamber dimension
--- NOTE | 2020-07-08 09:13 | WPDMODSED ---
Moderate Sedation Note-Pt Data Patient Data Diagnosis: Complete heart block Inferior STEMI 07/06/2020 Present Complaint: Complete heart block Procedure to be performed/Plan: Conscious sedation Venogram Implantation of a permanent dual-chamber pacemaker Allergies Allergy/AdvReac Type Severity Reaction Status Date / Time No Known Allergies Allergy Verified 07/06/20 08:45 Home Medications Medication Instructions Recorded Confirmed Type albuterol sulfate 2 puff INHALATION DAILY 07/06/20 07/06/20 History Current Medications: Active Medications Albuterol (Albuterol Sulfate (*Sp) Aerosol 1 Puff) 2 puff INHALATION QIDRT PRN PRN Reason: Shortness Of Breath Aspirin (Aspirin 81 Mg Chewable Tablet) 81 mg PO DAILY@0800 [facility] Last Admin: 07/08/20 08:36 Dose: 81 mg Documented by: Dextrose (Dextrose 50% 25 Gm/50 Ml Syringe) 12.5 gm IV PUSH PRN PRN; Protocol PRN Reason: Hypoglycemia Glucagon (Glucagon For Inj 1 Mg Vial) 1 mg IM PRN PRN; Protocol PRN Reason: Hypoglycemia Glucose (Glucose Oral Gel 15 Gm Of Glucse In 37.5 Gm Tube) 15 gm PO PRN PRN; Protocol PRN Reason: Hypoglycemia Dextrose (Dextrose 5% 1,000 Ml) 1,000 mls @ 100 mls/hr IVPB PRN PRN; Protocol PRN Reason: Hypoglycemia Cefazolin Sodium (Ancef 1 Gm/D5w 50 Ml Pm) 1 gm in 50 mls @ 100 mls/hr IVPB ONCE ONE Stop: 07/08/20 09:30 Sodium Chloride (Normal Saline Iv) 1,000 mls @ 100 mls/hr IV CONT .Q10H [facility] Insulin Aspart (Insulin Aspart (*Bkc) 100 Units/Ml) 3 - 6 units SUB-Q Q6HR [facility]; Protocol Lisinopril (Lisinopril 5 Mg Tablet) 5 mg PO DAILY [facility] Last Admin: 07/08/20 08:37 Dose: 5 mg Documented by: Nicotine (Nicotine (*Pbkc) 21 Mg Patch) 1 patch TRANSDERM QAM [facility] Last Admin: 07/07/20 17:58 Dose: Not Given Documented by: Nitroglycerin (Nitroglycerin Sl 0.4 Mg Tablet) 0.4 mg SUBLINGUAL Q5MIN PRN PRN Reason: Chest Pain Rosuvastatin Calcium (Rosuvastatin 10 Mg Tablet) 20 mg PO DAILY [facility] Last Admin: 07/08/20 08:37 Dose: 20 mg Documented by: Ticagrelor (Ticagrelor 90 Mg Tablet) 90 mg PO Q12HR [facility] Last Admin: 07/08/20 08:37 Dose: 90 mg Documented by: Tiotropium [place] (Tiotropium [place] 18 Mcg Cap Diskus) 1 cap INHALATION QAM [facility] Last Admin: 07/08/20 08:27 Dose: 1 cap Documented by: Sedation/Anesthesia: No previous sedation/anesthesia problems (including family history). 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 Gender identity (if verbalized by the patient): Male Sexual Orientation (if Verbalized by the Patient): Straight or Heterosexual Spiritual care concerns: No Mod Sed Physical Exam Physical Exam Pre Procedural Exam: Normal: Appearance, Eyes, Ears, Nose, Neck, Throat, Lungs, Heart Size, Heart Rhythm, Neuro Exam, Abdomen, Extremities and Skin and Variation: Airway (Edentulous) and Heart Rate (Bradycardia, heart rate 50s) Hours since solid foods: 12 Hours since liquid intake: 12 Internal Medicine - PN: Obj Da Vital Signs Vital Signs: Vital Signs - 24 hr 07/07/20 10:00 07/07/20 12:00 07/07/20 14:00 Temperature 97.8 F Pulse Rate 49 L 52 L 53 L Respiratory Rate 20 18 21
[2020-07-08] MEDS: SODIUM CHLORIDE 0.9% IV 1,000 ML 125 ML IV CONT (09:15)
[2020-07-08] MEDS: MAGNESIUM SULF 1 GM/D5W 100 ML 1 GM/100 ML BAG IVPB (10:40)
[2020-07-08 11:08] LABS: Add Urine Microscopic? YES; Appearance Urine Cloudy (Clear); Bilirubin Urine Negative (Negative); Blood Urine 3+ (Negative); Budding Yeast Urine Present /hpf; Color Urine Amber (Yellow); Glucose Urine UA 1+ mg/dL (Negative); Ketones Urine Negative (Negative); Leukocyte Esterase Ur Negative LEU/UL (NEGATIVE); Mucus Urine Few /lpf; Nitrate Urine Negative (Negative); Protein Urine 2+ mg/dL (Negative); RBC Urine >75 /hpf (0-2); Specific Grav Ur 1.026 (1.001-1.035); Squamous Epithelial Cell Urine Few /hpf (Few); Urobilinogen Urine Negative mg/dL (<2.0); WBC Clumps Urine Present /HPF; WBC Urine >75 /hpf (0-3)
[2020-07-08 11:48] LABS: Glucose Point of Care 176 (65-105)
--- NOTE | 2020-07-08 13:17 | PC.NURSE ---
Pt to greenhouse laborer via bed.
--- NOTE | 2020-07-08 15:45 | PM.OP ---
Procedure Note - Brief Procedure Note - Brief Date of procedure: 07/08/20 Pre-op diagnosis: Acute inferior wall infarction Complete heart block Post-op diagnosis: same Procedure performed: venogram, conscious sedation, implantation of a permanent dual-chamber pacemaker Description of procedure: Uneventful dual-chamber pacemaker implant. Patient was noted to have paroxysmal atrial flutter. Anesthesia: local ( With conscious sedation) Surgeon: Lee Ann Granger MD
--- NOTE | 2020-07-08 15:48 | ECG_ITS ---
Measurements Intervals [place] Rate: 60 P: -21 [place]: 178 QRS: -68 QRSD: 161 T: 93 QT: 483 QTc: 483 Interpretive Statements ELECTRONIC ATRIAL PACEMAKER WITH INHIBITION ELECTRONIC VENTRICULAR PACEMAKER NO FURTHER INTERPRETATION IS POSSIBLE ATYPICAL ECG Electronically Signed On 07-08-2020 16:29:38 CDT by Ahmet Borden D.O.
--- NOTE | 2020-07-08 17:13 | PC.NURSE ---
Report received from DELFINO Carvalho @ [id number]. Pt transferred to IMU Rm 203 from lab animal technician. Report was given to DELFINO Casiano and DELFINO Vance @ [id number]
[2020-07-08 17:18] LABS: Glucose Point of Care 134 (65-105)
--- NOTE | 2020-07-08 18:56 | PC.NURSE ---
This patient, Emmanuel Verduzco Jr., was received from lab tech on 07/08/20 at 1645. Patient was previously in ICU-11 and after permanent pacemaker placed he was moved to 203. Bedside report received from both Lucero Tattoo Designer RN and DELFINO Prieto. Patient/family oriented to unit policies and routines
[2020-07-08 19:55] LABS: Glucose Point of Care 151 (65-105)
--- NOTE | 2020-07-08 20:09 | PM.PROC ---
Procedure Note - Detailed Date of procedure: 07/08/20 Pre-op diagnosis: Acute inferior wall infarction Complete heart block Post-op diagnosis: same Procedure performed: conscious sedation venogram implantation of a permanent dual Description of procedure: HISTORY: 59-year-old male admitted a few days ago with an acute inferior myocardial infarction, late presentation , status post thrombectomy and 2 RCA stents. He went into second-degree heart block then 3rd degree heart block on the day of admission. Remains in complete heart block and we have recommended pacemaker implant. PROCEDURE PERFORMED: Conscious sedation Venogram Placement of a permanent dual-chamber pacemaker SITE: Left prepectoral area MEDICATIONS GIVEN IN BUSINESS CENTER REPRESENTATIVE: Ancef 1 gram IV piggyback CONSCIOUS SEDATION: Assessment: The patient has no history of anesthesia problems. The patient's oropharynx is clear. The patient was deemed to be a good candidate for conscious sedation. The patient had continuous hemodynamic monitoring during the procedure. Start time: 1401 Completion time: 1524 Total conscious sedation time: 83 minutes Medications: Versed 4 mg, fentanyl 100 mcg IV push Trained observer: Thai Schumacher RN Outcome: The patient tolerated the procedure well with no complications. PROCEDURE: After informed consent , the patient was brought to the production laborer and the left prepectoral area was prepped and draped in usual fashion . The patient received preop antibiotic and conscious sedation . The left prepectoral area was anesthetized with lidocaine. A venogram was performed showing the course of the left subclavian vein,which was patent. Next a skin incision was made and carried down to the prepectoral fascia. Hemostasis was obtained using electrocautery . The pacer pocket was formed. The left subclavian vein was accessed with the micropuncture technique; I was not able to access it through the pocket but obtained access with a separate stick further cephalad,and a J-tip guide wire was passed into the inferior vena cava under fluoroscopic guidance . The needle was withdrawn . A 2nd wire was introduced in an identical fashion. Both wires were pulled into the pocket. A 7 Stateless Stateless safety sheath was passed over the lateral wire, the wire withdrawn, and the right ventricular lead was passed into the inferior vena cava under fluoroscopic guidance . The lead was then prolapsed through the tricuspid valve and advanced On to the right ventricular septum, since patient likely will pace ventricularly most of the time and this may be more physiologic. When suitable sensing and pacing thresholds were obtained, it was screwed into place. No extra cardiac stimulation was obtained using 10 volts. The sheath was withdrawn. Next, another 7 Stateless safety sheath was passed over the more medial wire, the wire withdrawn, and the right atrial lead was passed into the inferior vena cava under fluoroscopic guidance. Right atrial lead was then pulled back to the level of the right atrium and manipulated into the right atrial appendage . When suitable sensing and pacing thresholds were obtained , it was screwed into place . No extra cardiac stimulation was obtained using 10 volts. The sheath was withdrawn. Unfortunately the atrial lead needed to be repositioned when it became dislodged. he also developed transient atrial fib flutter which resolved spontaneously.Both leads were secured to the prepectoral fascia using 2-0 silk over their respective sleeves. The pocket was cleansed with antibiotic containing solution . The pulse generator was introduced into the operative field, and both leads were secured into the generator . A gentle tug showed the leads were securely fastened. The device was introduced into the pocket. The subcutaneous tissues were closed in a double layer fashion with interrupted sutures, using 2-0 Vicryl suture , and the skin was close
[2020-07-08] MEDS: ceFAZolin 2 GM/D5W 50 ML 2 GM/50 ML BAG IVPB (21:42)
[2020-07-09] VITALS (7 sets, daily range): BP systolic 101–117; BP diastolic 60–67; PULSE 66–83; RESP 16–18; TEMP 36.6–36.8; O2SAT 96–98
[2020-07-09 04:58] LABS: Hematocrit 32.8 % (42.0-52.0); Hemoglobin 11.4 g/dL (14.0-18.0); Mean Corpuscular HGB Conc 34.8 g/dl (32-36); Mean Corpuscular Hemoglobin 32.1 pg (26-34); Mean Corpuscular Volume 92.4 fl (80-100); Mean Platelet Volume 10.3 fl (7.4-10.4); Platelet Count Result 178 k/mm3 (150-375); Red Blood Count 3.55 M/mm3 (4.6-6.20); White Blood Count 10.5 K/mm3 (4.5-10.0)
[2020-07-09 05:13] LABS: Alanine Aminotransferase 42 U/L (4-50); Albumin Level 3.5 g/dL (3.5-5.1); Alkaline Phosphatase 38 U/L (38-126); Anion Gap 3 mmol/L (8-16); Aspartate Amino Transferase 87 U/L (17-59); Bilirubin,Total 1.1 mg/dL (0.2-1.3); Blood Urea Nitrogen 19 mg/dL (9-20); Calcium 8.4 mg/dL (8.4-10.2); Carbon Dioxide 27 mmol/L (22-30); Chloride 103 mmol/L (98-107); Estimated CRCL calculation 81 ml/min; Estimated Glomerular Filt Rate > 60; Glucose 127 mg/dL (75-110); Magnesium 2.1 mg/dL (1.6-2.3); Potassium 3.9 mmol/L (3.4-5.0); Sodium 133 mmol/L (137-145)
[2020-07-09] MEDS: ceFAZolin 2 GM/D5W 50 ML 2 GM/50 ML BAG IVPB (05:39)
[2020-07-09 08:17] LABS: Glucose Point of Care 144 (65-105)
[2020-07-09] MEDS: TICAGRELOR 90 MG TABLET PO (08:23)
[2020-07-09] MEDS: ROSUVASTATIN 10 MG TABLET 20 MG PO (08:23)
[2020-07-09] MEDS: lisinopriL 5 MG TABLET PO (08:24)
[2020-07-09] MEDS: ASPIRIN 81 MG CHEWABLE TABLET PO (08:24)
--- NOTE | 2020-07-09 08:59 | PM.DS ---
DS: Admitting Diagnosis Admitting Diagnosis Admitting Diagnosis: Inferior wall [place] DS: Discharge Diagnosis Discharge Diagnosis (1) STEMI (ST elevation myocardial infarction): Code(s): I21.3 - ST elevation (STEMI) myocardial infarction of unspecified site Status: Acute (2) Complete heart block: Code(s): I44.2 - Atrioventricular block, complete Status: Acute (3) Pacemaker: Code(s): Z95.0 - Presence of cardiac pacemaker Status: Acute DS: Summary Hospital Course Reason for hospitalization: Acute inferior wall myocardial infarction Hospital Course: This is a 59-year-old man who [place] [facility] [place] [facility] with acute inferior wall myocardial infarction. He began to have chest pain unfortunately about 11 hours before hospital presentation. He was transported [place] by ambulance where he was taken immediately to the cardiac catheterization lab. He underwent emergency angiography that demonstrated 100% occlusion of the proximal right coronary artery. He also has about 80% stenosis in the 2nd OM branch of his circumflex. Emergency PCI was carried out with 2 drug-eluting stents deployed in the proximal to ostial segment of the RCA. Because the vessel was closed for prolonged amount of time there was a lot of thrombotic burden in the vessel and PCI of this was difficult and challenging. It was also challenging because guiding catheter positioning in the ostium of the right coronary artery was difficult. The clot was treated with balloon dilatation in the distal PDA branch to break up as much clot as we could and intracoronary followed by intravenous Integrilin. Attempts to advance a export catheter to extract thrombus into the vessel were unsuccessful. Following this he had a sizable infarction by troponin criteria which of course was not unexpected given the late presentation. He also went on to develop complete heart block. Upon arrival he had second-degree AV block Mobitz type 1 which by the 1st 24 hours had progressed to 3rd degree AV block. His escape rhythm was a narrow QRS rhythm with a heart rate of about 45 so a pacemaker was not felt to be emergent but it complete heart block did not resolve and so pacemaker implantation was obviously necessary. Yesterday he was taken back to the environmental laboratory technician where he received implantation of a Medtronic dual-chamber pacemaker. The procedure was uneventful. Irrigation this morning shows nominal device function and the patient is ambulatory this morning and appears to be a good candidate for discharge. His medical regimen consists of course of dual anti-platelet therapy low doses of metoprolol lisinopril on a high dose of rosuvastatin. He is to restrict himself to light household activity not lift more than 20 lb for the next week he is not to lift his left arm above his shoulder for the next month. He will be given an appointment next week to come to the office for pacemaker dressing removal and I will see him in the office in about 3 weeks for follow-up. Decisions will be made in follow-up as to whether to treat his circumflex lesion medically or to consider staged PCI of that lesion. Time spent discussing smoking cessation with patient: more than 10 minutes Status at Discharge Functional status at discharge: independent ambulation Time Spent with Patient Time attestation: Total time spent providing and/or coordinating discharge services: Time spent: Greater than 30 minutes Exam Const: General: comfortable and no acute distress Other: Well-developed well-nourished white male sitting in the chair appears to be comfortable cooperative in no distress of any kind HENMT: Mouth: Yes moist mucous membranes Eyes: Sclera: sclerae normal Pupils: Equal, round and reactive pupils present Neck: Neck: supple and no JVD Thyroid: thyroid normal Other: Carotid pulses are intact bilaterally there are no audible bruits over the
[2020-07-09] MEDS: METOPROLOL SUCCINATE EXT REL 25 MG TABCR PO (09:26)
== END 2020-07-09 11:19 | disposition home or self-care (01) | DRG 174 ==
LOC: ANHICU 12:06 → ANHIMU 07-09 09:06 → ANHICU 07-11 09:28 → ANHIMU 07-11 09:28
PROVIDERS: Internal Medicine; Internal Medicine Cardiovascular Disease; Admitting Provider Specialist; PCP Family Medicine; Visit Provider Specialist
PROC: 4A023N7 Measurement of Cardiac Sampling and Pressure, Left Heart, Percutaneous Approach (ICD-10-PCS; CPT 93452; principal; 2020-07-06 10:00)
PROC: 027035Z Dilation of Coronary Artery, One Artery with Two Drug-eluting Intraluminal Devices, Percutaneous Approach (ICD-10-PCS; 2020-07-06 10:00)
PROC: 0JH606Z Insertion of Pacemaker, Dual Chamber into Chest Subcutaneous Tissue and Fascia, Open Approach (ICD-10-PCS; CPT 33208; principal; 2020-07-08 11:30)
DX: I21.19 ST elevation (STEMI) myocardial infarction involving other coronary artery of inferior wall (principal); I25.10 Atherosclerotic heart disease of native coronary artery without angina pectoris; I48.92 Unspecified atrial flutter; I44.2 Atrioventricular block, complete; E11.9 Type 2 diabetes mellitus without complications; Z95.0 Presence of cardiac pacemaker; F17.210 Nicotine dependence, cigarettes, uncomplicated; R30.0 Dysuria; J44.9 Chronic obstructive pulmonary disease, unspecified; I44.1 Atrioventricular block, second degree
CPT/HCPCS: 33208; 36415; 71045; 71046; 80048; 80053; 81001; 82948; 83036; 83735; 84100; 84484; 85025; 85027; 85610; 85730; 93005; 93306; 93458; 94640; A9270; C1725; C1757; C1769; C1779; C1785; C1874; C1887; C1894; C9606; J0131; J0583; J0690; J1327; J1644; J1940; J2250; J2270; J3010; J3475; J7030; J7040

== ENCOUNTER 2020-07-10 09:03 | Emergency (ER) | payer OTHER, SELFPAY ==
--- NOTE | ~2020-07-10 | US_ITS ---
EXAMINATION: US pelvic limited EXAM DATE: 07/10/2020 10:06 INDICATION: Hematuria. Trouble urinating, passing clots since Tuesday. TECHNIQUE: Pelvic transabdominal sonogram was performed. There are multiple grayscale and Doppler im ages available for interpretation. There is no prior study for comparison. FINDINGS: Evaluation bladder demonstrates Ramos catheter surrounded by heterogeneous echogenicity mat erial which did not demonstrate vascularity. This is most likely a large hematoma, dimensions obtaine d on this exam at 6 x 8 cm. Sometimes large bladder clots are mechanically lysed by urology, consider consult. IMPRESSION: Large bladder hematoma surrounding Ramos. Consider urology consult. Reviewed, dictated and finalized at location B. IMPRESSION: Large bladder hematoma surrounding Ramos. Consider urology consult .
[2020-07-10 09:10] VITALS: BP 106/79; PULSE 80; RESP 19; TEMP 36.7; O2SAT 99
[2020-07-10 10:17] LABS: Basophils Absolute Auto 0.06 K/mm3 (0.00-0.10); Basophils Percent Auto 0.7 % (0.0-1.0); Eosinophils Absolute Auto 0.16 K/mm3 (0.02-0.50); Eosinophils Percent Auto 1.8 % (1.0-6.0); Hematocrit 32.1 % (40.0-54.0); Hemoglobin 10.7 g/dL (14.0-18.0); Immature Granulocyte Absolute 0.05 K/mm3 (0.00-0.00); Immature Granulocyte Percent A 0.6 % (0.0-0.0); Lymphocytes Percent Auto 16.9 % (18.0-42.0); Mean Corpuscular HGB Conc 33.3 g/dL (32.0-36.0); Mean Corpuscular Hemoglobin 31.8 pg (27.0-31.0); Mean Corpuscular Volume 95.3 fL (78.0-102.0); Mean Platelet Volume 9.9 fl (8.7-11.0); Monocytes Absolute Auto 0.86 K/mm3 (0.10-0.90); Monocytes Percent Auto 9.7 % (2.0-11.0); Neutrophils Absolute Auto 6.3 K/mm3 (1.7-7.2); Neutrophils Percent Auto 70.3 % (50.0-70.0); Platelet Count Result 190 K/mm3 (150-420); Red Blood Count 3.37 M/mm3 (4.70-6.10); Red Cell Distribution Width 12.7 % (11.6-14.4); White Blood Count 8.9 K/mm3 (4.8-10.8)
[2020-07-10 10:28] LABS: INR 1.1; Partial Thromboplastin Time 25.5 SEC (23.90-30.70); Prothrombin Time 11.5 Seconds (9.50-12.10)
--- NOTE | 2020-07-10 11:00 | PC.NURSE ---
MURRAY CATHETER FLUSHED WITH 500 ML SALINE - 500 ML OUT RED INITIALLY, THEN PINK. RETURNS TO RED
[2020-07-10 11:06] LABS: Alanine Aminotransferase 41 U/L (16-63); Albumin Level 2.9 g/dL (3.4-5.0); Alkaline Phosphatase 50 U/L (46-116); Anion Gap 9 mmol/L (8-16); Aspartate Amino Transferase 41 U/L (15-37); Bilirubin,Total 0.7 mg/dL (0.00-1.00); Blood Urea Nitrogen 19 mg/dL (7-18); Calcium 8.5 mg/dL (8.5-10.1); Carbon Dioxide 25 mmol/L (21-32); Chloride 99 mmol/L (98-108); Estimated Glomerular Filt Rate > 60; Glucose 153 mg/dL (70-99); Osmolality Calculated 281 mOsm/kg (285-295); Potassium 4.2 mmol/L (3.5-5.1); Sodium 133 mmol/L (136-145); Total Protein 6.7 g/dL (6.4-8.2)
--- NOTE | 2020-07-10 11:10 | PC.NURSE ---
[facility] CALLED FOR POSSIBLE TRANSFER
--- NOTE | 2020-07-10 11:20 | ED.MALEGU ---
HPI - Male Genitourinary General Chief complaint: Urogenital-Male Stated complaint: can't urinate after pacemaker put in Source: patient and family Mode of arrival: ambulatory History of Present Illness HPI Narrative: this is a 59-year-old male that presents with urinary retention and hematuria over the last couple of days has intensified and passing a small amount a urine with small clots with hematuria with suprapubic discomfort, not currently no flank pain no fever or chills. The patient recently was discharged from [facility] after he was transfer from a [facility] with some STEMI was seen by cardiology had stents placed and was recently started on Brilinta and aspirin. Presents today with some urinary retention and and small scant amount of urinary clots. There is no fever chills no nausea vomiting no chest pain no shortness of breath. Onset (ago): day(s) Duration: constant Location: abdomen Severity: moderate Severity scale (1-10): 6 Relieving factors: none Exacerbating factors: urination Context: new medication Associated symptoms: Reports urinary retention and blood in urine Related Data Home Medications Medication Instructions Recorded Confirmed albuterol sulfate 2 puff INHALATION DAILY 07/06/20 07/10/20 Allergies Allergy/AdvReac Type Severity Reaction Status Date / Time No Known Allergies Allergy Verified 07/06/20 08:45 Review of Systems Review of Systems: All systems reviewed & are unremarkable except as noted in HPI and below PMFSH Past Medical History Medical History Left-sided Palacios's palsy STEMI (ST elevation myocardial infarction) T2DM (type 2 diabetes mellitus) unable to tolerate metformin Vertigo Surgical History Surgical History H/O hernia repair Family History Family History Mother History of blood clots Chronic obstructive pulmonary disease Diabetes mellitus Father Chronic obstructive pulmonary disease Social History Social History Smoking packs per day: 2 Smoking cigarettes per day: 40.0 Years smoked: 48 Smoking pack-years: 96.00 Smoking status: Current every day smoker Tobacco type: cigarettes Alcohol intake: never Substance use: never 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 Gender identity (if verbalized by the patient): Male Spiritual care concerns: No Exam Const: General: cooperative, healthy appearing, comfortable, no acute distress and well developed HENMT: Head: normal to inspection Ears: hearing grossly normal bilaterally General nose exam: Normal external nose present Mouth: Yes Normal oral and palatal mucosa present Eyes: General: appearance normal, both eyes and all related structures Visual Knutson: normal visual knutson by confrontation Eyelids: eyelids normal Conjunctivae: conjunctivae normal Chest: Chest palpation & inspection: normal inspection of the chest and normal palpation of entire chest wall Resp: Effort & Inspection: normal respiratory effort and able to speak in complete sentences Auscultation: clear to auscultation bilaterally Cardio: Jugular venous distension: no JVD Palpation: normal PMI Rate: regular rate Rhythm: regular rhythm Heart sounds: S1 normal heart sound present and S2 normal heart sound present GI: Inspection: normal to inspection GI Palp: Yes abdominal tenderness ( Suprapubic) Percussion: Yes normal to percussion Auscultation: normal bowel sounds and normoactive bowel sounds Urinary Catheter: Urinary Catheter: urine with clots Back/Spine/Pelvis: Back: no CVA tenderness Skin: General skin exam: normal color and no rashes or lesions noted Neuro: General: oriented to person, oriented to place and oriented to time Psych: Appearance: gross
[2020-07-10] MEDS: SODIUM CHLORIDE 0.9% IV 1,000 ML 999 ML IV CONT (11:40)
--- NOTE | 2020-07-10 12:16 | PC.NURSE ---
HOSPITALIST CALLS BACK TO ACCEPT PATIENT
[2020-07-10 12:50] VITALS: BP 104/69; PULSE 72; O2SAT 97
== END 2020-07-10 13:04 | disposition short-term general hospital (02) ==
PROVIDERS: Emergency Provider Emergency Medicine; PCP Family Medicine
DX: R33.9 Retention of urine, unspecified (principal)
CPT/HCPCS: 36415; 76857; 80053; 85025; 85610; 85730; 96360; 99285; J7030

== ENCOUNTER 2020-07-10 14:00 | Observation (INO) | payer OTHER, SELFPAY ==
[2020-07-10] VITALS (11 sets, daily range): BP systolic 96–151; BP diastolic 56–92; PULSE 63–96; RESP 11–27; TEMP 36.2–37; O2SAT 90–100; BMI 33.0
--- NOTE | ~2020-07-10 | XR_ITS ---
EXAMINATION: XR retrograde pyelogram RT DATE: 07/10/2020 16:54 INDICATION: Hematuria. TECHNIQUE: 68 intraoperative fluoroscopic views of the abdomen and pelvis were obtained. I was not pr esent. Fluoroscopy see exposure time was 29 seconds. COMPARISON: None. FINDINGS: The right-sided retrograde pyelogram is normal. IMPRESSION: 1. Normal right-sided retrograde pyelogram. Reviewed, dictated and finalized at location A.
--- NOTE | 2020-07-10 14:00 | ADMGEN ---
This patient, Emmanuel Verduzco Jr., was admitted to Medical Room 246-01. Patient/family oriented to hospital policies and general routines including ID bracelet, bed and alarms, visiting hours, pain management, procedures, bathroom and other care routines, personal items, smoking policy, room service/diet, and visiting hours. Information on how to activate the Rapid Response Team has been discussed. Patient/Family are encouraged to report perceived risks to care and to ask questions if they do not understand what they are told or what they should do.
--- NOTE | 2020-07-10 15:21 | PC.NURSE ---
To OR per jodee, IV intact. Report given to DELFINO Crabtree.
--- NOTE | 2020-07-10 15:38 | WPDURCON ---
Assessment and Plan Assessment and plan (1) Acute retention of urine: Code(s): R33.8 - Other retention of urine Status: Acute (2) Hematuria: Qualifiers: Hematuria type: gross Qualified Code(s): R31.0 - Gross hematuria Code(s): R31.9 - Hematuria, unspecified Status: Acute Assessment and Plan: Hematuria with clot urinary retention following recent cardiac intervention for stenting/ pacemaker placement with subsequent anticoagulation. Plan cystoscopy with clot evacuation and possible cauterization. Urology Consult Note HPI Date Seen: 07/10/20 Requesting Physician: Jaz Hughes MD Primary Care Provider: Matt Sequeira MD Consult Narrative Narrative: Emmanuel Verduzco Jr. is a 59 year old male who was previously a known to our practice and without prior significant urological history. In the last several days he has undergone several cardiac procedures including thrombectomy, stenting and subsequent pacemaker placement. Subsequent to this he developed urinary retention. He was seen in the emergency department [place] where catheter was placed. It was then noted he had gross hematuria and pelvic ultrasonography showed a large clot in his bladder. Patient denies prior significant obstructive or irritable voiding symptoms. To bit unclear to me whether his hematuria started before or after catheter placement. Upper urinary tract imaging has not been undertaken. Review of Systems Cardiovascular: Cardiovascular: Denies chest pain, Denies lightheadedness, Denies palpitations and Denies dyspnea Respiratory: Respiratory: Denies dyspnea Gastrointestinal: Gastrointestinal: Denies diarrhea, Denies nausea and Denies vomiting Genitourinary: Genitourinary: Denies hematuria and Denies dysuria Endocrine: Endocrine: Denies palpitations PMFSH Past Medical History Medical History Left-sided Palacios's palsy STEMI (ST elevation myocardial infarction) T2DM (type 2 diabetes mellitus) unable to tolerate metformin Vertigo Surgical History Surgical History H/O hernia repair Family History Family History Mother History of blood clots Chronic obstructive pulmonary disease Diabetes mellitus Father Chronic obstructive pulmonary disease Social History Social History Smoking packs per day: 2 Smoking cigarettes per day: 40.0 Years smoked: 48 Smoking pack-years: 96.00 Smoking status: Current every day smoker Tobacco type: cigarettes Alcohol intake: never Substance use: never 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 Gender identity (if verbalized by the patient): Male Spiritual care concerns: No Meds Home Medications and Allergies Home Medications Medication Instructions Recorded Confirmed Type albuterol sulfate 2 puff INHALATION DAILY 07/06/20 07/10/20 History aspirin [Children's Aspirin] 81 mg PO DAILY@0800 #30 tablet 07/09/20 07/10/20 Rx lisinopril 5 mg PO DAILY #30 tablet 07/09/20 07/10/20 Rx metoprolol succinate [Toprol XL] 25 mg PO QAM #30 tablet 07/09/20 07/10/20 Rx nicotine [Nicoderm CQ] 1 patch TRANSDERMAL QAM #30 ea 07/09/20 07/10/20 Rx rosuvastatin [Crestor] 20 mg PO DAILY #30 tablet 07/09/20 07/10/20 Rx ticagrelor [Brilinta] 90 mg PO Q12HR #60 tablet 07/09/20 07/10/20 Rx Allergies Allergy/AdvReac Type Severity Reaction Status Date / Time No Known Allergies Allergy Verified 07/10/20 15:20 Exam Const: General: no acute distress Resp: Effort & Inspection: normal respiratory effort GI: Inspection: non-distended GI Palp: No abdominal tenderness and No Guarding due to palpation present (GI) Auscultation: normal bowel sounds Urinary Catheter: Urinary Catheter: urine with clots
[2020-07-10] MEDS: LACTATED RINGERS 1,000 ML 30 ML IV CONT (15:45)
--- NOTE | 2020-07-10 15:55 | WPDANESEPPF ---
Anes - Initial Pre Proc Eval Procedure: Operation Date: 07/10/20 16:00 Proposed Procedures p Cystoscopy, Evacuation Bladder Clots - Lucien Trevizo MD Date/Time: 07/10/20 15:55 Surgeon: Jaz Hughes MD Pre Op Diagnosis: hematuria Patient Data Age: 59 Gender: M Height: Weight: Allergies Allergy/AdvReac Type Severity Reaction Status Date / Time No Known Allergies Allergy Verified 07/10/20 15:20 Home Medications Medication Instructions Recorded Confirmed Type albuterol sulfate 2 puff INHALATION DAILY 07/06/20 07/10/20 History aspirin [Children's Aspirin] 81 mg PO DAILY@0800 #30 tablet 07/09/20 07/10/20 Rx lisinopril 5 mg PO DAILY #30 tablet 07/09/20 07/10/20 Rx metoprolol succinate [Toprol XL] 25 mg PO QAM #30 tablet 07/09/20 07/10/20 Rx nicotine [Nicoderm CQ] 1 patch TRANSDERMAL QAM #30 ea 07/09/20 07/10/20 Rx rosuvastatin [Crestor] 20 mg PO DAILY #30 tablet 07/09/20 07/10/20 Rx ticagrelor [Brilinta] 90 mg PO Q12HR #60 tablet 07/09/20 07/10/20 Rx Patient hx anesthesia problems: none Family hx anesthesia problems: none PMFSH Past Medical History Medical History (Updated 07/10/20 @ 15:56 by Sivakumar Stewart DO) Left-sided Palacios's palsy Pacemaker STEMI (ST elevation myocardial infarction) T2DM (type 2 diabetes mellitus) unable to tolerate metformin Vertigo Surgical History Surgical History H/O hernia repair Family History Family History Mother History of blood clots Chronic obstructive pulmonary disease Diabetes mellitus Father Chronic obstructive pulmonary disease Social History Social History Smoking packs per day: 2 Smoking cigarettes per day: 40.0 Years smoked: 48 Smoking pack-years: 96.00 Smoking status: Current every day smoker Tobacco type: cigarettes Alcohol intake: never Substance use: never 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 Gender identity (if verbalized by the patient): Male Spiritual care concerns: No Anes - Eval Final PreProcedure Day of Procedure 07/10/20 15:55 Patient weight: obese Heart: regular rate and rhythm Lungs: clear to auscultation and normal air movement Airway: Mallampati scale class II Neurological: alert and oriented Last oral intake: >/= 8 hours ASA classification: IV Emergent: yes Anesthetic plan: proceed Anesthesia type and monitoring: general GIVS and standard monitoring Informed Consent: The patient's anesthetic plan and its attendant risks and benefits were discussed with the patient/family/POA. Questions were solicited and answers provided to the satisfaction of the patient/family/POA.
--- NOTE | 2020-07-10 15:59 | PM.IMHP ---
H&P: HPI History of Present Illness Date/Time: 07/10/20 15:59 this is a 59-year-old male patient who was a direct admit from [facility]. I spoke with Dr. Hawkins for report. I spoke with the house visitor who instructed me that Dr. sutton office was notified about the patient. Is reported that the patient should be admitted to the hospitalist and that urology will consult. The patient tells me that he was just discharged from this hospital yesterday. The patient was admitted here at [facility] on 07/06/2020 with a STEMI. The patient was taken to the cardiac medical laboratory manager and received 2 stents at that time. The patient had a successful PCI of the proximal occluded portion of the RCA using the 2 of 3.5 mm or 0 drug eluting stents in the occluded segment and proximal to the O2 cm of the vessel with a nice angiographic result. He had a thromotic burden because of his late presentation. The patient has been on Brilinta and had his last dose this morning. On 07/08/2020 the patient had a permanent dual chamber pacemaker placed due to complete heart block. The patient stated that he was complaining of having some hematuria while he was here at the hospital. urinalysis was obtained and the patient was not placed on any antibiotics at that time. The patient stated that he was up during the night trying to urinate. He said that he was only urinating small amounts and he was passing clots frequently. The patient was seen at [facility] today for urinary retention and hematuria. He did appear to be in any discomfort. He was just urinating frequently in small amounts. He had no fever or chills or any nausea vomiting. No shortness of breath. His H&H was noted to be 10.7 and 32.1. The patient was noted to have an H&H of 10.7 and 32.1. I did speak with Dr. issa concerning his Brilinta and it was suggested that we switch him to Plavix. I also spoke with Urology who also stated that the patient would need to come to the OR. The patient is being admitted for observation on the date of service of 07/10/2020. Chief Complaint: Hematuria Review of Systems Review of Systems: All systems reviewed & are unremarkable except as noted in HPI and below Constitutional: Constitutional: Reports as per HPI and Reports no additional constitutional complaints Eyes: Eyes: Reports as per HPI and Reports no additional eye complaints ENT: Reports system reviewed and no additional complaints, except as documented and Reports Normal hearing present Cardiovascular: Cardiovascular: Reports no additional cardiovascular complaints Respiratory: Respiratory: Reports no additional respiratory complaints and Reports no additional respiratory complaints Gastrointestinal: Gastrointestinal: Reports as per HPI and Reports no additional gastrointestinal complaints Musculoskeletal: Musculoskeletal: Reports no additional musculoskeletal complaints Integumentary/Breasts: Skin/Breast: Reports system reviewed and no additional complaints, except as docu and Reports as per HPI Neurologic: Reports system reviewed and no additional complaints, except as documented, Reports as per HPI and Reports Normal hearing present Psychiatric: Psychiatric: Reports no additional psychiatric complaints and Reports as per HPI Endocrine: Endocrine: Reports no additional endocrine complaints Hematologic/Lymphatic: Hematologic/Lymphatic: Reports no additional hematologic/lymphatic complaints Allergic/Immunologic: Allergic/Immunologic: Reports no additional allergic/immunologic complaints [facility] Past Medical History Medical History (Updated 07/10/20 @ 16:18 by Rose Pierre NP) Asthma CAD (coronary artery disease) Left-sided Palacios's palsy Pacemaker STEMI (ST elevation myocardial infarction) T2DM (type 2 diabetes mellitus) unable to tolerate metformin Vertigo Surgical History Surgical History (Updated 07/10/20 @ 16:12 by Rose Pierre NP) H/O cardiac catheterization H
--- NOTE | 2020-07-10 16:03 | WPDHPUPDATE1 ---
History and Physical Update Update Date/Time: 07/10/20 16:03 History and Physical has been reviewed, including an updated exam of the patient. There are NO changes in the patient's condition. Risks, benefits, and alternatives have been discussed and questions answered. Patient agrees to proceed with procedure.
[2020-07-10] MEDS: ceFAZolin SODIUM 1 GM VIAL 2 GM IV PUSH (16:23)
[2020-07-10] MEDS: LIDOCAINE HCL 2% GEL UROJET 10 ML PKG MUCOUS MEM (16:49)
--- NOTE | 2020-07-10 16:54 | P.OP_ITS ---
Procedure Note - Detailed Date of procedure: 07/10/20 Pre-op diagnosis: hematuria Post-op diagnosis: other (1. 3-4cm bladder tumor 2. BPH) Procedure performed: 1. Cystoscopy, clot evacuation 2. TURBT (medium, 3-4cm). 3. Right retrograde pyelogram Description of procedure: Patient brought to the operative suite where he has prepped draped in routine sterile fashion while in a dorsal lithotomy position. 2% xylocaine jelly was introduced intraurethrally and systemic sedation is administered per the anesthesia department. 27F resectoscope sheath was placed in the bladder. He has moderate lateral lobe hyperplasia of the prostate with a high median bar and small median lobe. There is a huge clot in the bladder which was evacuated using a [place] syringe. Careful inspection then revealed a 3-4 cm papillary bladder tumor overlying the left posterior lateral bladder wall and obscuring visualization the left ureteral orifice. I resected the tumor that attempt made to include detrusor muscle for pathological evaluation of inv asion. Avoid cautery in the anticipated area of the left ureteral orifice but was never I pulled to identify the left ureteral orifice. Right retrograde pyelogram with in a 8 F bulb tip catheter showed no filling defects or points of obstruction. Again, despite exhaustive attempts, I could not find the left ureteral orifice. A 3 way catheter was placed to continuous irrigation. In the future he will need upper tract imaging with contrast complete evaluation for hematuria. Anesthesia: MAC Surgeon: Lucien Trevizo MD Estimated blood loss (mL): 10 Drains: Yes (22F hematuria catheter) Packing: No Pathology: yes Complications: No immediate complications Condition: stable Disposition: PACU
[2020-07-10] MEDS: DEXTROSE 5%/0.9% SOD CHL 1,000 ML 50 ML IV CONT (18:43)
[2020-07-10 19:33] LABS: Alanine Aminotransferase 31 U/L (4-50); Albumin Level 3.5 g/dL (3.5-5.1); Alkaline Phosphatase 45 U/L (38-126); Anion Gap 3 mmol/L (8-16); Aspartate Amino Transferase 40 U/L (17-59); Bilirubin,Total 0.8 mg/dL (0.2-1.3); Blood Urea Nitrogen 15 mg/dL (9-20); Calcium 8.5 mg/dL (8.4-10.2); Carbon Dioxide 28 mmol/L (22-30); Chloride 103 mmol/L (98-107); Estimated CRCL calculation 88 ml/min; Estimated Glomerular Filt Rate > 60; Glucose 150 mg/dL (75-110); Magnesium 2.1 mg/dL (1.6-2.3); Potassium 4.4 mmol/L (3.4-5.0); Sodium 134 mmol/L (137-145)
[2020-07-10 21:36] LABS: Glucose Point of Care 149 (65-105)
[2020-07-11] VITALS: BP 98/55; PULSE 68; PULSE 80; RESP 16; TEMP 36.5; O2SAT 96
[2020-07-11 00:28] LABS: Glucose Point of Care 125 (65-105)
[2020-07-11] MEDS: HYOSCYAMINE SULFATE 0.125 MG TABLET PO (02:06)
[2020-07-11 04:00] VITALS: PULSE 72
[2020-07-11 05:42] LABS: Basophils Absolute Auto 0.1 K/mm3 (0.0-0.1); Basophils Percent Auto 0.7 % (0.2-1.2); Eosinophils Absolute Auto 0.2 K/mm3 (0-0.3); Eosinophils Percent Auto 2.2 % (0-4.4); Hematocrit 28.6 % (42.0-52.0); Hemoglobin 9.7 g/dL (14.0-18.0); Immature Granulocyte Absolute 0.03 K/mm3 (0.00-0.031); Immature Granulocyte Percent A 0.3 % (0-0.5); Lymphocytes Absolute Auto 1.39 K/mm3 (0.9-3.2); Lymphocytes Percent Auto 16.2 % (18.3-44.2); Mean Corpuscular HGB Conc 33.9 g/dl (32-36); Mean Corpuscular Hemoglobin 32.6 pg (26-34); Mean Platelet Volume 10.4 fl (7.4-10.4); Monocytes Absolute Auto 0.8 K/mm3 (0.1-0.6); Monocytes Percent Auto 9.7 % (2.6-8.5); Neutrophils Absolute Auto 6.1 K/mm3 (1.3-6.7); Neutrophils Percent Auto 70.9 % (45.5-73.1); Platelet Count Result 196 k/mm3 (150-375); Red Blood Count 2.98 M/mm3 (4.6-6.20); Red Cell Distribution Width 12.9 % (11.5-14.5); White Blood Count 8.6 K/mm3 (4.5-10.0)
[2020-07-11 05:55] LABS: Anion Gap 3 mmol/L (8-16); Blood Urea Nitrogen 14 mg/dL (9-20); Calcium 8.1 mg/dL (8.4-10.2); Carbon Dioxide 26 mmol/L (22-30); Chloride 105 mmol/L (98-107); Estimated CRCL calculation 88 ml/min; Estimated Glomerular Filt Rate > 60; Glucose 143 mg/dL (75-110); Potassium 4.3 mmol/L (3.4-5.0); Sodium 134 mmol/L (137-145)
[2020-07-11 06:00] VITALS: BP 100/50; PULSE 81; RESP 18; TEMP 36.6; O2SAT 97
[2020-07-11 07:11] LABS: Glucose Point of Care 152 (65-105)
--- NOTE | 2020-07-11 07:13 | WPDUROPN2 ---
Progress Note: A&P Assessment and Plan (1) Malignant neoplasm of overlapping sites of bladder: Code(s): C67.8 - Malignant neoplasm of overlapping sites of bladder Status: Acute Assessment and Plan: Doing well status post clot evacuation and TURBT CBI this morning with voiding trial later this morning if urine remains clear. Discharge this afternoon a possibility. Subjective Subjective Date/Time Seen: 07/11/20 07:13 POD #1 clot evacuation/TURBT. Urine clear, pt. comfortable Review of Systems Cardiovascular: Cardiovascular: Denies chest pain, Denies lightheadedness, Denies palpitations and Denies dyspnea Respiratory: Respiratory: Denies dyspnea Gastrointestinal: Gastrointestinal: Denies diarrhea, Denies nausea and Denies vomiting Genitourinary: Genitourinary: Denies hematuria and Denies dysuria Endocrine: Endocrine: Denies palpitations Exam Const: General: no acute distress Resp: Effort & Inspection: normal respiratory effort GI: Inspection: non-distended GI Palp: No abdominal tenderness and No Guarding due to palpation present (GI) Auscultation: normal bowel sounds Urinary Catheter: Urinary Catheter: urine clear Objective Data Vital Signs Vital Signs: Vital Signs - 24 hr 07/10/20 14:26 07/10/20 15:42 07/10/20 16:00 Temperature 97.8 F 97.5 F L Pulse Rate 70 72 72 Respiratory Rate 16 22 H Blood Pressure 96/56 L 115/66 Pulse Oximetry 94 90 07/10/20 17:02 07/10/20 17:15 07/10/20 17:30 Temperature 97.3 F L Pulse Rate 64 64 63 Respiratory Rate 11 L 18 27 H Blood Pressure 105/92 H 151/66 H 118/74 Pulse Oximetry 100 99 98 07/10/20 17:45 07/10/20 18:10 07/10/20 18:25 Temperature 97.3 F L 97.8 F Pulse Rate 65 96 68 Respiratory Rate 26 H 20 20 Blood Pressure 115/69 132/66 107/71 Pulse Oximetry 97 100 99 07/10/20 18:55 07/10/20 20:00 07/11/20 00:00 Temperature 97.1 F L 98.6 F 97.7 F Pulse Rate 73 71 68 Respiratory Rate 20 18 16 Blood Pressure 116/73 100/60 98/55 L Pulse Oximetry 100 97 96 07/11/20 04:00 07/11/20 06:00 Temperature 97.9 F Pulse Rate 72 81 Respiratory Rate 18 Blood Pressure 100/50 L Pulse Oximetry 97 Intake/Output Intake/Output: Intake & Output 07/08/20 07/09/20 07/10/20 07/11/20 23:59 23:59 23:59 23:59 Intake Total 50 600 Output Total 150 2000 Balance -100 -1400 Meds/Results Medications: Active Medications Generic Name Dose Route Start Last Admin Trade Name Freq PRN Reason Stop Dose Admin Albuterol 2 puff 07/10/20 16:20 Albuterol Sulfate (*Sp) Aerosol 1 Puff INHALATION Q6HRT PRN Shortness Of Breath Clopidogrel Bisulfate 75 mg 07/11/20 09:00 Clopidogrel Bisulfate 75 Mg Tablet PO QAM CHAVO Dextrose 12.5 gm 07/10/20 16:19 Dextrose 50% 25 Gm/50 Ml Syringe IV PUSH PRN PRN Hypoglycemia Protocol Glucagon 1 mg 07/10/20 16:19 Glucagon For Inj 1 Mg Vial IM PRN PRN Hypoglycemia Protocol Glucose 15 gm 07/10/20 16:19 Glucose Oral Gel 15 Gm Of Glucse In 37.5 Gm Tube PO PRN PRN Hypoglycemia Protocol Hyoscyamine 0.125 mg 07/11/20 01:44 07/11/20 02:06 Hyoscyamine Sulfate 0.125 Mg Tablet PO 0.125 mg Q4H PRN Administration Bladder Spasm Dextrose/Sodium Chloride 1,000 mls @ 50 mls/hr 07/10/20 15:05 07/10/20 18:43 Dextrose 5% Sodium Chloride 0.9% IV CONT 50 mls/hr .Q20H CHAVO Administration Dextrose 1,000 mls @ 100 mls/hr 07/10/20 16:19 Dextrose 5% 1,000 Ml IVPB PRN PRN Hypoglycemia Protocol Insulin Aspart 2 - 5 units 07/10/20 17:00 07/10/20 18:39 Insulin Aspart (*Bkc) 100 Units/Ml SUB-Q Not Given TIDWM [facility] Protocol Metoprolol Succinate 25 mg 07/11/20 09:00 Metoprolol Succinate Ext Rel 25 Mg Tabcr PO QAM CHAVO Nicotine 1 patch 07/10/20 09:00 07/10/20 18:39 Nicotine (*Pbkc) 21 Mg Patch TRANSDERM Not [facility] Ondansetron HCl 4 mg 07/10/20 15:04
[2020-07-11 08:00] VITALS: BP 114/62; PULSE 73; PULSE 76; PULSE 80; RESP 18; TEMP 36.1; O2SAT 97; O2SAT 98
[2020-07-11 08:27] VITALS: PULSE 81
[2020-07-11] MEDS: METOPROLOL SUCCINATE EXT REL 25 MG TABCR PO (08:27)
[2020-07-11] MEDS: CLOPIDOGREL BISULFATE 75 MG TABLET PO (08:27)
[2020-07-11] MEDS: ROSUVASTATIN 10 MG TABLET 20 MG PO (08:27)
--- NOTE | 2020-07-11 10:33 | WPDANESPN ---
Anes - Prog Note Post-Op Date/Time: 07/11/20 10:33 Cardiovascular status: normal Respiratory status: normal Airway patency: baseline Mental status: baseline Post-Op hydration status: normal Vital Signs: Last Vital Signs Temp 36.1 C L 07/11/20 08:00 Pulse 81 07/11/20 08:27 Resp 18 07/11/20 08:00 BP 114/62 07/11/20 08:00 Pulse Ox 97 07/11/20 08:00 Pain Score (VAS): 3 I/O: Intake & Output 07/10/20 07/11/20 07/11/20 23:59 07:59 15:59 Intake Total 50 600 600 Output Total 150 2000 Balance -100 -1400 600 Laboratory Tests 07/11/20 05:18 07/11/20 05:18 07/10/20 07/10/20 07/10/20 17:37 19:10 21:32 WBC RBC Hgb Hct MCV MCH MCHC RDW Plt Count MPV Immature Gran % (Auto) Neut % (Auto) Lymph % (Auto) [place] % (Auto) Eos % (Auto) Baso % (Auto) Lymph # (Auto) [place] # (Auto) Eos # (Auto) Baso # (Auto) Abs Immat Gran (auto) Absolute Neuts (auto) Absolute Nucleated RBC Nucleated RBC % Sodium 134 L Potassium 4.4 Chloride 103 Carbon Dioxide 28 Anion Gap 3 L BUN 15 Creatinine 1.00 Estim Creat Clear Calc 88 Estimated GFR > 60 Glucose 150 H POC Capillary Glucose 125 H 149 H Hemoglobin A1c Calcium 8.5 Magnesium 2.1 Total Bilirubin 0.8 AST 40 ALT 31 Alkaline Phosphatase 45 Total Protein 7.0 Albumin 3.5 07/11/20 07/11/20 07/11/20 05:18 05:18 05:18 WBC 8.6 RBC 2.98 L Hgb 9.7 L Hct 28.6 L MCV 96.0 MCH 32.6 MCHC 33.9 RDW 12.9 Plt Count 196 MPV 10.4 Immature Gran % (Auto) 0.3 Neut % (Auto) 70.9 Lymph % (Auto) 16.2 L Dyer % (Auto) 9.7 H Eos % (Auto) 2.2 Baso % (Auto) 0.7 Lymph # (Auto) 1.39 Dyer # (Auto) 0.8 H Eos # (Auto) 0.2 Baso # (Auto) 0.1 Abs Immat Gran (auto) 0.03 Absolute Neuts (auto) 6.1 Absolute Nucleated RBC 0.0 Nucleated RBC % 0.0 Sodium 134 L Potassium 4.3 Chloride 105 Carbon Dioxide 26 Anion Gap 3 L BUN 14 Creatinine 1.00 Estim Creat Clear Calc 88 Estimated GFR > 60 Glucose 143 H POC Capillary Glucose Hemoglobin A1c 7.0 H Calcium 8.1 L Magnesium Total Bilirubin AST ALT Alkaline Phosphatase Total Protein Albumin 07/11/20 07:07 WBC RBC Hgb Hct MCV MCH MCHC RDW Plt Count MPV Immature Gran % (Auto) Neut % (Auto) Lymph % (Auto) [place]yer % (Auto) Eos % (Auto) Baso % (Auto) Lymph # (Auto) Dyer # (Auto) Eos # (Auto) Baso # (Auto) Abs Immat Gran (auto) Absolute Neuts (auto) Absolute Nucleated RBC Nucleated RBC % Sodium Potassium Chloride Carbon Dioxide Anion Gap BUN Creatinine Estim Creat Clear Calc Estimated GFR Glucose POC Capillary Glucose 152 H Hemoglobin A1c Calcium Magnesium Total Bilirubin AST ALT Alkaline Phosphatase Total Protein Albumin Post-procedural complaints: none Patient Feedback: Patient satisfied with anesthetic care.
[2020-07-11 12:00] VITALS: BP 109/67; PULSE 76; RESP 18; TEMP 36.4; O2SAT 98
[2020-07-11 12:01] LABS: Glucose Point of Care 131 (65-105)
--- NOTE | 2020-07-11 12:38 | PM.DS ---
DS: Admitting Diagnosis Admitting Diagnosis Admitting Diagnosis: Gross hematuria DS: Discharge Diagnosis Discharge Diagnosis (1) Malignant neoplasm of overlapping sites of bladder: Code(s): C67.8 - Malignant neoplasm of overlapping sites of bladder Status: Acute Assessment and Plan: Presented with gross hematuria was passage of small clots. Pelvic US demonstrated large clot in bladder. Underwent cystoscopy on 07/10/[address] Trevizo which demonstrated 3-4 cm bladder tumor and BPH. The tumor was resected and sent for pathology, which is pending. Hematuria resolved postoperatively and H&H was stable. (2) Acute retention of urine: Code(s): R33.8 - Other retention of urine Status: Inactive Assessment and Plan: Presented with urinary retention following dual chamber pacemaker placement on 07/08/20. Ramos catheter initiated and subsequently noted hematuria as described above. Plan as above. Patient able to void without difficulty following TURBT. (3) CAD (coronary artery disease): Code(s): I25.10 - Atherosclerotic heart disease of [place] coronary artery without angina pectoris Status: Acute Assessment and Plan: He was hospitalized 07/06/20-07/09/20 after acute inferior wall [place]. He had cardiac catheterization and underwent thrombectomy and dual chamber pacemaker implantation due to development of complete heart block. Continue dual-antiplatelet therapy with brilinta and aspirin - discussed with urology who agreed given resolution of hematuria. Continue metoprolol, lisinopril, and rosuvastatin. (4) COPD (chronic obstructive pulmonary disease): Code(s): J44.9 - Chronic obstructive pulmonary disease, unspecified Status: Acute Assessment and Plan: Not in acute exacerbation. Maintained adequate oxygenation on room air. (5) Tobacco abuse: Code(s): Z72.0 - Tobacco use Status: Acute Assessment and Plan: Smokes 1-2 packs per day. Nicotine patch provided during his stay. I counseled him on smoking cessation for 10 minutes. He is motivated to quit smoking. (6) T2DM (type 2 diabetes mellitus): Code(s): E11.9 - Type 2 diabetes mellitus without complications Status: Acute Assessment and Plan: A1c is 7.0. Blood sugars were generally well controlled. He is not on any medications for glycemic control. I discussed with him and he does not wish to start medication. He would like to attempt to lower his A1c with diet and exercise. I encouraged him to monitor his blood sugars and record for review by PCP. DS: Summary Hospital Course Reason for hospitalization: Hematuria Hospital Course: Date of admission: 07/10/2020 Date of discharge: 07/11/2020 Emmanuel Verduzco is a 59-year-old male with a history of recent STEMI 1 week prior s/p cardiac catheterization, thrombectomy, and dual chamber pacemaker implantation, type 2 diabetes mellitus, and COPD [facility] of urinary retention after passage of small clots in urine. Upon presentation to the ED, his vital signs are stable, hemoglobin was 10.7, and electrolytes were stable. Ramos catheter was initiated and he was transferred to [facility] for urology consultation. Please see above for further details. Hematuria resolved following TURBT and CBI. Pathology is pending and patient will follow-up with urology in 1 week. He will also need to continue his regularly scheduled cardiology follow-up given his recent cardiac procedures. He was feeling well and was eager for discharge home. Given his overall improvement, he was determined to no longer require inpatient care and felt to be stable for discharge. We discussed worrisome signs and symptoms for which to return and he was educated on his medications. He was discharged in hemodynamically stable condition on 07/11/2020. Status at Discharge Functional
== END 2020-07-11 13:30 | disposition home or self-care (01) ==
PROVIDERS: Nurse Practitioner; Urology; Admitting Provider Hospitalist; PCP Family Medicine; Visit Provider Physician Assistant
PROC: 0TCB8ZZ Extirpation of Matter from Bladder, Via Natural or Artificial Opening Endoscopic (ICD-10-PCS; CPT 52001; principal; 2020-07-10 16:00)
DX: C67.8 Malignant neoplasm of overlapping sites of bladder (principal); R33.8 Other retention of urine; R31.0 Gross hematuria; I25.2 Old myocardial infarction; E11.9 Type 2 diabetes mellitus without complications; J44.9 Chronic obstructive pulmonary disease, unspecified; I25.10 Atherosclerotic heart disease of native coronary artery without angina pectoris; F17.210 Nicotine dependence, cigarettes, uncomplicated; Z79.51 Long term (current) use of inhaled steroids; Z79.82 Long term (current) use of aspirin; Z79.01 Long term (current) use of anticoagulants; Z95.5 Presence of coronary angioplasty implant and graft; Z95.0 Presence of cardiac pacemaker; E66.9 Obesity, unspecified; Z68.33 Body mass index [BMI] 33.0-33.9, adult
CPT/HCPCS: 52235; 36415; 74420; 80048; 80053; 82948; 83036; 83735; 85025; 88305; A9270; C1757; C1758; C1769; C1887; G0378; G0379; J0690; J2704; J7042; J7120; Q9966

== ENCOUNTER 2020-07-30 12:22 | Observation (INO) | payer OTHER, SELFPAY ==
[2020-07-30] VITALS (14 sets, daily range): BP systolic 109–141; BP diastolic 67–92; PULSE 60–82; RESP 16–20; TEMP 36.1–36.4; O2SAT 94–100
--- NOTE | ~2020-07-30 | XR_ITS ---
EXAMINATION: XR retrograde pyelo w/stent LT DATE: 07/30/2020 16:37 INDICATION: Left internal ureteral stent placement TECHNIQUE: Fluoroscopic images from a left stent placement are submitted for review. 11 seconds of fl uoroscopy time. 2 fluoroscopic images FINDINGS: There is a left double-J internal ureteral stent projecting in expected position, with proximal Liberty loop at the level of the renal pelvis and distal loop in the pelvis within the bladder lumen. IMPRESSION: 1. Left internal ureteral stent placement. Please refer to real-time procedural findings for detail s. Reviewed, dictated and finalized at location A. IMPRESSION: 1. Left internal ureteral stent placement. Please refer to real-time procedur al findings for details.
--- NOTE | 2020-07-30 13:51 | ED.MALEGU ---
HPI - Male Genitourinary General Chief complaint: Urogenital-Male Stated complaint: urinary retention Time Seen by Provider: 07/30/20 13:31 Source: patient Mode of arrival: ambulatory Limitations: no limitations History of Present Illness HPI Narrative: This is a 60 year old male that presents to the ER for urinary retention since last night. Reports since last night he has been unable to fully urinate. Only drips will come out. Reports he has noted dark red blood in the urine as well. Reports he recently had a bladder tumor that was resected. He did not follow up with Urology as he did not know he needed to. Denies fever, chest pain, shortness of breath, abdominal pain, nausea, or vomiting. Related Data Home Medications Medication Instructions Recorded Confirmed albuterol sulfate 2 puff INHALATION DAILY PRN 07/06/20 07/10/20 Allergies Allergy/AdvReac Type Severity Reaction Status Date / Time No Known Allergies Allergy Verified 07/30/20 13:08 Review of Systems Review of Systems: Narrative: CONSTITUTIONAL: Denies fever CARDIOVASCULAR: Denies chest pain RESPIRATORY: Denies dyspnea. GASTROINTESTINAL: Denies abdominal pain, nausea, vomiting GENITOURINARY: Reports dysuria and hematuria. All systems reviewed & are unremarkable except as noted in HPI and below PMFSH Past Medical History Medical History Asthma CAD (coronary artery disease) Left-sided Palacios's palsy Pacemaker STEMI (ST elevation myocardial infarction) T2DM (type 2 diabetes mellitus) unable to tolerate metformin Vertigo Surgical History Surgical History H/O cardiac catheterization H/O heart artery stent X2 H/O hernia repair History of tonsillectomy and adenoidectomy Family History Family History Mother History of blood clots Chronic obstructive pulmonary disease Diabetes mellitus Father Chronic obstructive pulmonary disease Social History Social History Social History: Has 4 daughters and does not have a durable power income tax consultant for healthcare. The patient desires to be a full code. The patient still continues to smoke cigarettes but has decreased since his last admission. He had been smoking 2 packs of cigarettes a day but since his heart attack he has been using the nicotine patch. 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 He denies any alcohol, marijuana or illicit drugs. 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 Gender identity (if verbalized by the patient): Male Spiritual care concerns: No Exam Narrative: Exam Narrative: GENERAL: Well-appearing, well-nourished, and in no acute distress. HEAD: Normocephalic, atraumatic. EYES: EOMI. CHEST: Clear to auscultation. No respiratory distress. No wheezes rales or rhonchi HEART: Regular rate and rhythm. No murmur heard. Normal peripheral pulses. ABDOMEN: Soft, nontender, nondistended, normal active bowel sounds. EXTREMITIES: Normal range of motion. No edema. SKIN: Warm, dry, no rash. NEURO: No focal deficits. Alert and oriented x3. PSYCH: Normal mood and affect Course Consultations Consultation #1: Spoke with urology about patient and work-up who will take patient to the OR for cystoscopy Date: 07/30/20 Vital Signs Vital signs: Vital Signs Temperature 97.6 F 07/30/20 12:25 Pulse Rate 81 07/30/20 12:25 Respiratory Rate 18 07/30/20 12:25 Blood Pressure 109/73 07/30/20 12:25 Pulse Oximetry 99 07/30/20 12:25 Temperature 97.3 F L 07/30/20 16:47 Pul
--- NOTE | 2020-07-30 14:05 | PC.NURSE ---
Attempted to insert 3 way Ramos on pt. Pt requested us to stop inserting. Tolerated poorly. Urojet was used.
--- NOTE | 2020-07-30 14:27 | PC.NURSE ---
failed attempt at pierce insertion. pt declining another attempt at this time. EDP aware of situation.
[2020-07-30 14:46] LABS: Basophils Absolute Auto 0.1 K/mm3 (0.0-0.1); Basophils Percent Auto 1.1 % (0.2-1.2); Eosinophils Absolute Auto 0.4 K/mm3 (0-0.3); Eosinophils Percent Auto 5.3 % (0-4.4); Hemoglobin 12.5 g/dL (14.0-18.0); Immature Granulocyte Absolute 0.02 K/mm3 (0.00-0.031); Immature Granulocyte Percent A 0.3 % (0-0.5); Lymphocytes Absolute Auto 2.66 K/mm3 (0.9-3.2); Mean Corpuscular HGB Conc 32.9 g/dl (32-36); Mean Corpuscular Hemoglobin 31.8 pg (26-34); Mean Corpuscular Volume 96.7 fl (80-100); Mean Platelet Volume 9.1 fl (7.4-10.4); Monocytes Absolute Auto 0.5 K/mm3 (0.1-0.6); Monocytes Percent Auto 7.1 % (2.6-8.5); Neutrophils Absolute Auto 3.9 K/mm3 (1.3-6.7); Neutrophils Percent Auto 51.2 % (45.5-73.1); Platelet Count Result 232 k/mm3 (150-375); Red Blood Count 3.93 M/mm3 (4.6-6.20); Red Cell Distribution Width 13.6 % (11.5-14.5); White Blood Count 7.6 K/mm3 (4.5-10.0)
[2020-07-30 14:55] LABS: Anion Gap 8 mmol/L (8-16); Blood Urea Nitrogen 9 mg/dL (9-20); Calcium 9.4 mg/dL (8.4-10.2); Carbon Dioxide 26 mmol/L (22-30); Chloride 105 mmol/L (98-107); Estimated CRCL calculation 93 ml/min; Estimated Glomerular Filt Rate > 60; Glucose 110 mg/dL (75-110); Potassium 4.5 mmol/L (3.4-5.0); Sodium 139 mmol/L (137-145)
[2020-07-30] MEDS: LIDOCAINE HCL 2% GEL UROJET 10 ML PKG (15:00)
--- NOTE | 2020-07-30 15:23 | WPDANESEPP ---
Anes - Eval Pre Procedure Procedure: Operation Date: 07/30/20 16:00 Proposed Procedures p Cystoscopy, Evacuation Bladder Clots - Soy Lowery MD Date/Time: 07/30/20 15:23 Pre Op Diagnosis: urinary retention Patient Data Age: 60 Gender: M Height: 1.78 m Weight: 100.1 kg Last Vital Signs Temp 36.1 C L 07/30/20 13:00 Pulse 81 07/30/20 13:00 Resp 18 07/30/20 13:00 BP 109/73 07/30/20 13:00 Pulse Ox 99 07/30/20 13:00 Allergies Allergy/AdvReac Type Severity Reaction Status Date / Time No Known Allergies Allergy Verified 07/30/20 13:08 Home Medications Medication Instructions Recorded Confirmed Type albuterol sulfate 2 puff INHALATION DAILY PRN 07/06/20 07/10/20 History Brilinta 90 mg PO Q12HR #60 tablet 07/09/20 07/10/20 Rx aspirin [Children's Aspirin] 81 mg PO DAILY@0800 #30 tablet 07/09/20 07/10/20 Rx lisinopril 5 mg PO DAILY #30 tablet 07/09/20 07/10/20 Rx metoprolol succinate [Toprol XL] 25 mg PO QAM #30 tablet 07/09/20 07/10/20 Rx nicotine [Nicoderm CQ] 1 patch TRANSDERMAL QAM #30 ea 07/09/20 07/10/20 Rx rosuvastatin [Crestor] 20 mg PO DAILY #30 tablet 07/09/20 07/10/20 Rx Laboratory Tests 07/30/20 07/30/20 14:38 14:38 WBC 7.6 K/mm3 K/mm3 (4.5-10.0) RBC 3.93 M/mm3 L M/mm3 (4.6-6.20) Hgb 12.5 g/dL L g/dL (14.0-18.0) Hct 38.0 % L % (42.0-52.0) MCV 96.7 fl fl (80-100) MCH 31.8 pg pg (26-34) MCHC 32.9 g/dl g/dl (32-36) RDW 13.6 % % (11.5-14.5) Plt Count 232 k/mm3 k/mm3 (150-375) MPV 9.1 fl fl (7.4-10.4) Immature Gran % (Auto) 0.3 % % (0-0.5) Neut % (Auto) 51.2 % % (45.5-73.1) Lymph % (Auto) 35.0 % % (18.3-44.2) [place] % (Auto) 7.1 % % (2.6-8.5) Eos % (Auto) 5.3 % H % (0-4.4) Baso % (Auto) 1.1 % % (0.2-1.2) Lymph # (Auto) 2.66 K/mm3 K/mm3 (0.9-3.2) [place] # (Auto) 0.5 K/mm3 K/mm3 (0.1-0.6) Eos # (Auto) 0.4 K/mm3 H K/mm3 (0-0.3) Baso # (Auto) 0.1 K/mm3 K/mm3 (0.0-0.1) Abs Immat Gran (auto) 0.02 K/mm3 K/mm3 (0.00-0.031) Absolute Neuts (auto) 3.9 K/mm3 K/mm3 (1.3-6.7) Absolute Nucleated RBC 0.0 K/mm3 K/mm3 (0.0-0.012) Nucleated RBC % 0.0 % % (0.0-0.2) Sodium 139 mmol/L mmol/L (137-145) Potassium 4.5 mmol/L mmol/L (3.4-5.0) Chloride 105 mmol/L mmol/L (98-107) Carbon Dioxide 26 mmol/L mmol/L (22-30) Anion Gap 8 mmol/L mmol/L (8-16) BUN 9 mg/dL D mg/dL (9-20) Creatinine 0.90 mg/dL mg/dL (0.7-1.3) Estim Creat Clear Calc 93 ml/min ml/min Estimated GFR > 60 (59 - ) Glucose 110 mg/dL mg/dL (75-110) Calcium 9.4 mg/dL mg/dL (8.4-10.2) Patient hx anesthesia problems: none Family hx anesthesia problems: none [facility] Past Medical History Medical History Asthma CAD (coronary artery disease) Left-sided Palacios's palsy Pacemaker STEMI (ST elevation myocardial infarction) T2DM (type 2 diabetes mellitus) unable to tolerate metformin Vertigo Surgical History Surgical History H/O cardiac catheterization H/O heart artery stent X2 H/O hernia repair History of tonsillectomy and adenoidectomy Family History Family History Mother History of blood clots Chronic obstructive pulmonary disease Diabetes mellitus Father Chronic obstructive pulmonary disease Social History Social History Social History: Has 4 daughters and does not have a durable power estate planning attorney for healthcare. The patient desires to be a full code. The patient still continues to smoke cigarettes but has decreased since his last admission. He had been smoking 2 packs of cigarettes a day but
--- NOTE | 2020-07-30 15:50 | WPDURCON ---
Assessment and Plan Assessment and plan (1) Dysuria: Code(s): R30.0 - Dysuria Status: Acute Assessment and Plan: Will plan to send patient home on Bactrim, obtain urine culture in the OR. (2) Malignant neoplasm of overlapping sites of bladder: Code(s): C67.8 - Malignant neoplasm of overlapping sites of bladder Status: Acute Assessment and Plan: Patient informed of his pathology results and is aware of his bladder cancer. Likely causing gross hematuria and or infection. (3) Gross hematuria: Code(s): R31.0 - Gross hematuria Status: Acute Assessment and Plan: Plan to go to the OR: Cystoscopy with clot evacuation and bladder fulgeration. Obtain consent, keep NPO. (4) Clot retention of urine: Code(s): R33.8 - Other retention of urine Status: Acute Urology Consult Note HPI Date Seen: 07/30/20 Requesting Physician: Soy Lowery MD Primary Care Provider: Jeffrey Ritchie, Consult Narrative Narrative: Emmanuel Verduzco Jr. is a 60 year old male who presents to the emergency room today with difficulty urinating and blood clots in his urine. He states the bleeding started yesterday, he noticed some clots and then overnight it worsened and today he became unable to urinate at all. His PVR is >400cc and the nurses attempted to place a pierce but were unsuccessful, we were consulted at that time. His WBC is 7.6 and creatinine is stable as well at 0.70. Unable to obtain a UA at this time. He is s/p Cystoscopy, bladder clot evacuation and bladder tumor removal on 07/10/[address] Trevizo at [facility]. He was instructed to follow up after his discharge however he wasn't aware of this. 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 The patient states he also had dysuria, but denies flank pain, abdominal pain, nausea or vomiting. Review of Systems Cardiovascular: Cardiovascular: Denies chest pain Respiratory: Respiratory: Reports no additional respiratory complaints Gastrointestinal: Gastrointestinal: Denies abdominal pain, Denies nausea and Denies vomiting Genitourinary: Genitourinary: Reports hematuria, Reports dysuria, Denies flank pain, Reports urinary hesitancy and Reports other (retention) [facility] Past Medical History Medical History Asthma CAD (coronary artery disease) Left-sided Palacios's palsy Pacemaker STEMI (ST elevation myocardial infarction) T2DM (type 2 diabetes mellitus) unable to tolerate metformin Vertigo Surgical History Surgical History H/O cardiac catheterization H/O heart artery stent X2 H/O hernia repair History of tonsillectomy and adenoidectomy Family History Family History Mother History of blood clots Chronic obstructive pulmonary disease Diabetes mellitus Father Chronic obstructive pulmonary disease Social History Social History Social History: Has 4 daughters and does not have a durable power clinic manager for healthcare. The patient desires to be a full code. The patient still continues to smoke cigarettes but has decreased since his last admission. He had been smoking 2 packs of cigarettes a day but since his heart attack he has been using the nicotine patch. 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 He denies any alcohol, marijuana or illicit drugs. 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 Gender identity (if verbalized by the patient): Male
--- NOTE | 2020-07-30 15:56 | WPDANESEPPF ---
Anes - Initial Pre Proc Eval Procedure: Operation Date: 07/30/20 16:00 Proposed Procedures p Cystoscopy, Evacuation Bladder Clots - Soy Lowery MD Date/Time: 07/30/20 15:56 Surgeon: Soy Lowery MD Pre Op Diagnosis: urinary retention Patient Data Age: 60 Gender: M Height: 5 ft 10 in Weight: 100.1 kg Last Vital Signs Temp 36.1 C L 07/30/20 13:00 Pulse 82 07/30/20 15:33 Resp 19 07/30/20 15:33 BP 124/70 07/30/20 15:33 Pulse Ox 99 07/30/20 15:33 Allergies Allergy/AdvReac Type Severity Reaction Status Date / Time No Known Allergies Allergy Verified 07/30/20 13:08 Home Medications Medication Instructions Recorded Confirmed Type albuterol sulfate 2 puff INHALATION DAILY PRN 07/06/20 07/10/20 History Brilinta 90 mg PO Q12HR #60 tablet 07/09/20 07/10/20 Rx aspirin [Children's Aspirin] 81 mg PO DAILY@0800 #30 tablet 07/09/20 07/10/20 Rx lisinopril 5 mg PO DAILY #30 tablet 07/09/20 07/10/20 Rx metoprolol succinate [Toprol XL] 25 mg PO QAM #30 tablet 07/09/20 07/10/20 Rx nicotine [Nicoderm CQ] 1 patch TRANSDERMAL QAM #30 ea 07/09/20 07/10/20 Rx rosuvastatin [Crestor] 20 mg PO DAILY #30 tablet 07/09/20 07/10/20 Rx Laboratory Tests 07/30/20 07/30/20 07/30/20 14:38 14:38 15:36 WBC 7.6 K/mm3 K/mm3 (4.5-10.0) RBC 3.93 M/mm3 L M/mm3 (4.6-6.20) Hgb 12.5 g/dL L g/dL (14.0-18.0) Hct 38.0 % L % (42.0-52.0) MCV 96.7 fl fl (80-100) MCH 31.8 pg pg (26-34) MCHC 32.9 g/dl g/dl (32-36) RDW 13.6 % % (11.5-14.5) Plt Count 232 k/mm3 k/mm3 (150-375) MPV 9.1 fl fl (7.4-10.4) Immature Gran % (Auto) 0.3 % % (0-0.5) Neut % (Auto) 51.2 % % (45.5-73.1) Lymph % (Auto) 35.0 % % (18.3-44.2) [place] % (Auto) 7.1 % % (2.6-8.5) Eos % (Auto) 5.3 % H % (0-4.4) Baso % (Auto) 1.1 % % (0.2-1.2) Lymph # (Auto) 2.66 K/mm3 K/mm3 (0.9-3.2) [place] # (Auto) 0.5 K/mm3 K/mm3 (0.1-0.6) Eos # (Auto) 0.4 K/mm3 H K/mm3 (0-0.3) Baso # (Auto) 0.1 K/mm3 K/mm3 (0.0-0.1) Abs Immat Gran (auto) 0.02 K/mm3 K/mm3 (0.00-0.031) Absolute Neuts (auto) 3.9 K/mm3 K/mm3 (1.3-6.7) Absolute Nucleated RBC 0.0 K/mm3 K/mm3 (0.0-0.012) Nucleated RBC % 0.0 % % (0.0-0.2) PT Pending INR Pending APTT Pending Sodium 139 mmol/L mmol/L (137-145) Potassium 4.5 mmol/L mmol/L (3.4-5.0) Chloride 105 mmol/L mmol/L (98-107) Carbon Dioxide 26 mmol/L mmol/L (22-30) Anion Gap 8 mmol/L mmol/L (8-16) BUN 9 mg/dL D mg/dL (9-20) Creatinine 0.90 mg/dL mg/dL (0.7-1.3) Estim Creat Clear Calc 93 ml/min ml/min Estimated GFR > 60 (59 - ) Glucose 110 mg/dL mg/dL (75-110) Calcium 9.4 mg/dL mg/dL (8.4-10.2) Patient hx anesthesia problems: none Family hx anesthesia problems: none [facility] Past Medical History Medical History Asthma CAD (coronary artery disease) Left-sided Palacios's palsy Pacemaker STEMI (ST elevation myocardial infarction) T2DM (type 2 diabetes mellitus) unable to tolerate metformin Vertigo Surgical History Surgical History H/O cardiac catheterization H/O heart artery stent X2 H/O hernia repair History of tonsillectomy and adenoidectomy Family History Family History Mother History of blood clots Chronic obstructive pulmonary disease Diabetes mellitus Father Chronic obstructive pulmonary disease Social History Social History Social History: Has 4 daughters and does not have a du
[2020-07-30] MEDS: LACTATED RINGERS 1,000 ML 30 ML IV CONT ×2 (15:59→18:10)
--- NOTE | 2020-07-30 16:00 | WPDHPUPDATE1 ---
History and Physical Update Update Date/Time: 07/30/20 16:00 History and Physical has been reviewed, including an updated exam of the patient. There are NO changes in the patient's condition. Risks, benefits, and alternatives have been discussed and questions answered. Patient agrees to proceed with procedure. proceed with cysto, clot evacuation
[2020-07-30 16:03] LABS: Prothrombin Time 13.8 Seconds (11.1-14.7)
[2020-07-30 16:04] LABS: Partial Thromboplastin Time 26.4 SECONDS (22.3-36.8)
[2020-07-30] MEDS: ceFAZolin SODIUM 1 GM VIAL 2 GM IV PUSH (16:15)
--- NOTE | 2020-07-30 16:42 | PM.PROC ---
Procedure Note - Detailed Date of procedure: 07/30/20 Pre-op diagnosis: urinary retention Clot retention Post-op diagnosis: same Procedure performed: Cystoscopy, clot evacuation, fulguration, left retrograde pyelogram, left ureteral stent placement 6 Mongolian contour Description of procedure: Patient is taken to the operative suite and correctly identified. Once anesthesia was obtained was placed in dorsal lithotomy position and prepped and draped usual sterile fashion. Twenty-two Mongolian scope inserted the bladder in direct vision. He has numerous clots in. Using a Chino syringe we evacuated the clots. Reinspection reveals some oozing from prior resection bed along the left floor. Dr. Trevizo'prior op note revealed that he never visualized the left ureteral orifice. At this point time there is area that is raised that appears to be in orifice. At this point given its proximity to the prior resection area we decided to place a stent. We were able to manipulate an angled Glidewire up to the kidney and then do a pyelogram. At this time the collecting system is not dilated. We did place a 6 Mongolian contour stent to help keep this area patent so the prior resected area can heal without scarring the orifice. We fulgurated the prior resection bed using a ball electrode. There was good hemostasis. 2% viscous lidocaine was inserted into the urethra and an [address] was placed with 10 cc in the balloon. This was connected to continuous bladder irrigation is patient is taken recovery stable condition. If his urine is clear in recovery room will let him go home with the Ramos catheter and have it removed on Tuesday. He will need to follow up with Dr. Trevizo for stent removal in a couple of weeks as well as discussion of his pathology Surgeon: Soy Lowery MD Drains: Yes Packing: No Pathology: none sent Complications: No immediate complications Condition: stable Disposition: PACU
[2020-07-30] MEDS: oxyCODONE HCL (*CRX) 5 MG TAB IR PO (17:58)
[2020-07-30] MEDS: fentaNYL CITRATE INJ (*CRX) 100 MCG/2 ML VIAL 25 MCG IV PUSH ×5 (18:13→19:22)
--- NOTE | 2020-07-30 21:02 | PC.NURSE ---
Returned from OR per [bed]. Report received from [August]. TOA 2037
[2020-07-31 00:19] VITALS: BP 130/77; PULSE 60; RESP 20; TEMP 36.6; O2SAT 98
[2020-07-31 05:07] VITALS: BP 133/79; PULSE 72; RESP 20; TEMP 36.1; O2SAT 96
[2020-07-31 06:22] LABS: Hematocrit 36.4 % (42.0-52.0); Hemoglobin 11.9 g/dL (14.0-18.0)
[2020-07-31 06:31] VITALS: BMI 32.8
[2020-07-31 06:46] LABS: Anion Gap 7 mmol/L (8-16); Blood Urea Nitrogen 10 mg/dL (9-20); Carbon Dioxide 29 mmol/L (22-30); Chloride 102 mmol/L (98-107); Estimated CRCL calculation 86 ml/min; Estimated Glomerular Filt Rate > 60; Glucose 139 mg/dL (75-110); Potassium 4.1 mmol/L (3.4-5.0); Sodium 138 mmol/L (137-145)
[2020-07-31 08:18] VITALS: PULSE 72; RESP 20; O2SAT 99
[2020-07-31] MEDS: ROSUVASTATIN 10 MG TABLET 20 MG PO (08:18)
[2020-07-31] MEDS: METOPROLOL SUCCINATE EXT REL 25 MG TABCR PO (08:18)
[2020-07-31] MEDS: DOCUSATE SODIUM 100 MG CAPSULE PO (08:18)
[2020-07-31] MEDS: lisinopriL 5 MG TABLET PO (08:18)
[2020-07-31 10:00] VITALS: BP 114/72; PULSE 70; RESP 18; TEMP 36.9; O2SAT 95
--- NOTE | 2020-07-31 10:16 | WPDUROPN2 ---
Progress Note: A&P Assessment and Plan (1) Acute urinary retention: Code(s): R33.8 - Other retention of urine Status: Acute Assessment and Plan: Patient will go home with pierce to be removed on Tuesday next week. (2) Hematuria: Qualifiers: Hematuria type: gross Qualified Code(s): R31.0 - Gross hematuria Code(s): R31.9 - Hematuria, unspecified Status: Acute Assessment and Plan: IMproved, will keep CBI off for now and encourage activity, then re-evaluate the urine this afternoon, if it remains clear, will discharge patient home and have him follow up with Dr. Trevizo in 2-4 weeks to discuss bladder tumor path results and remove stent. (3) Clot retention of urine: Code(s): R33.8 - Other retention of urine Status: Acute Assessment and Plan: Resolved (4) Gross hematuria: Code(s): R31.0 - Gross hematuria Status: Acute (5) Malignant neoplasm of overlapping sites of bladder: Code(s): C67.8 - Malignant neoplasm of overlapping sites of bladder Status: Acute Subjective Subjective Date/Time Seen: 07/31/20 10:16 Cystoscopy, clot evacuation, fulgeration, left stent placement, left retrograde pyelogram. Patient doing considerably well this morning, having mild left lower quadrant pain from the stent, which is tolerable. CBI was turned off 10 minutes prior to my exam and the urinea appears yellow and clear. Review of Systems Cardiovascular: Cardiovascular: Denies chest pain Respiratory: Respiratory: Reports no additional respiratory complaints Gastrointestinal: Gastrointestinal: Reports abdominal pain, Denies nausea and Denies vomiting Genitourinary: Genitourinary: Denies hematuria and Reports other (pierce in place) Exam Resp: Effort & Inspection: normal respiratory effort Cardio: Rate: regular rate GI: GI Palp: Yes Soft to palpation and Yes Tenderness to palpation present (GI) (LLQ) : General: Yes no CVA tenderness Urinary Catheter: Urinary Catheter: patent and draining and urine clear Extrem: General: no edema Objective Data Vital Signs Vital Signs: Vital Signs - 24 hr 07/30/20 12:25 07/30/20 13:00 07/30/20 15:33 Temperature 97.6 F 96.9 F L Pulse Rate 81 81 82 Respiratory Rate 18 18 19 Blood Pressure 109/73 109/73 124/70 Pulse Oximetry 99 99 99 07/30/20 16:06 07/30/20 16:47 07/30/20 17:00 Temperature 96.9 F L 97.3 F L Pulse Rate 60 67 68 Respiratory Rate 16 18 20 Blood Pressure 109/67 122/89 127/87 Pulse Oximetry 100 100 100 07/30/20 17:15 07/30/20 17:30 07/30/20 17:43 Temperature Pulse Rate 67 68 65 Respiratory Rate 20 20 20 Blood Pressure 119/84 126/88 141/83 H Pulse Oximetry 97 97 100 07/30/20 18:00 07/30/20 18:30 07/30/20 19:00 Temperature Pulse Rate 65 67 67 Respiratory Rate 18 Blood Pressure 141/92 H 130/83 125/78 Pulse Oximetry 94 96 07/30/20 20:54 07/30/20 21:54 07/31/20 00:19 Temperature 96.9 F L 96.9 F L 97.8 F Pulse Rate 68 64 60 Respiratory Rate 20 20 20 Blood Pressure 135/78 137/83 130/77 Pulse Oximetry 99 98 98 07/31/20 05:07 07/31/20 08:18 Temperature 96.9 F L Pulse Rate 72 72 Respiratory Rate 20 20 Blood Pressure 133/79 Pulse Oximetry 96 99 Intake/Output Intake/Output: Intake & Output 07/28/20 07/29/20 07/30/20 07/31/20 23:59 23:59 23:59 23:59 Intake Total 300 340 Output Total 1600 700 Balance -1300 -360 Meds/Results Medications: Active Medications Generic Name Dose Route Start Last Admin Trade Name Freq PRN Reason Stop Dose Admin Hydrocodone Bitart/Acetaminophen 1 tab 07/30/20 20:09 Hydrocodone/Acetaminophen (*Crx) 5-325 Mg Tablet PO Q4H PRN Pain Rated 1-6 Albuterol 2 puff 07/30/20 20:09 Albuterol Sulfate (*Sp) Aerosol 1 Puff INHALATION DAILY PRN Shortness Of Breath Cephalexin HCl 500 mg 07/31/20 13:00 Cephalexin 500 Mg Capsule PO QID CHAVO Docusate Sodium 100 mg 07/31
[2020-07-31] MEDS: CEPHALEXIN 500 MG CAPSULE PO (13:27)
--- NOTE | 2020-07-31 13:46 | P.PNAN_ITS ---
Anes - Prog Note Post-Op Date/Time: 07/31/20 13:46 Cardiovascular status: normal Respiratory status: normal Airway patency: baseline Mental status: baseline Post-Op hydration status: normal Vital Signs: Last Vital Signs Temp 36.9 C 07/31/20 10:00 Pulse 70 07/31/20 10:00 Resp 18 07/31/20 10:00 BP 114/72 07/31/20 10:00 Pulse Ox 95 07/31/20 10:00 Pain Score (VAS): 0/10. Patient resting in bed at time of assessment, appears comfortable. I/O: Intake & Output 07/30/20 07/31/20 07/31/20 23:59 07:59 15:59 Intake Total 300 340 Output Total 1600 700 Balance -1300 -360 Laboratory Tests 07/31/20 05:15 07/31/20 05:15 07/30/20 07/30/20 07/30/20 14:38 14:38 15:36 WBC 7.6 RBC 3.93 L Hgb 12.5 L Hct 38.0 L MCV 96.7 MCH 31.8 MCHC 32.9 RDW 13.6 Plt Count 232 MPV 9.1 Immature Gran % (Auto) 0.3 Neut % (Auto) 51.2 Lymph % (Auto) 35.0 [place] % (Auto) 7.1 Eos % (Auto) 5.3 H Baso % (Auto) 1.1 Lymph # (Auto) 2.66 [place] # (Auto) 0.5 Eos # (Auto) 0.4 H Baso # (Auto) 0.1 Abs Immat Gran (auto) 0.02 Absolute Neuts (auto) 3.9 Absolute Nucleated RBC 0.0 Nucleated RBC % 0.0 PT 13.8 INR 1.0 APTT 26.4 Sodium 139 Potassium 4.5 Chloride 105 Carbon Dioxide 26 Anion Gap 8 BUN 9 D Creatinine 0.90 Estim Creat Clear Calc 93 Estimated GFR > 60 Glucose 110 Calcium 9.4 Blood Type Antibody Screen 07/30/20 07/31/20 07/31/20 15:36 05:15 05:15 WBC RBC Hgb 11.9 L Hct 36.4 L MCV MCH MCHC RDW Plt Count MPV Immature Gran % (Auto) Neut % (Auto) Lymph % (Auto) [place] % (Auto) Eos % (Auto) Baso % (Auto) Lymph # (Auto) [place] # (Auto) Eos # (Auto) Baso # (Auto) Abs Immat Gran (auto) Absolute Neuts (auto) Absolute Nucleated RBC Nucleated RBC % PT INR APTT Sodium 138 Potassium 4.1 Chloride 102 Carbon Dioxide 29 Anion Gap 7 L BUN 10 Creatinine 1.00 Estim Creat Clear Calc 86 Estimated GFR > 60 Glucose 139 H Calcium 9.0 Blood Type A Negative Antibody Screen Negative Post-procedural complaints: none Patient Feedback: Patient satisfied with anesthetic care.
[2020-07-31 14:00] VITALS: BP 102/64; PULSE 75; RESP 20; TEMP 36.5; O2SAT 100
[2020-08-05 14:11] LABS: Glucose Point of Care 100 mg/dl (65-105)
--- NOTE | 2020-09-02 15:38 | PM.DS ---
DS: Admitting Diagnosis Admitting Diagnosis Admitting Diagnosis: Gross hematuria with clot retention DS: Summary Hospital Course Hospital Course: Patient was admitted for retention and hematuria. He underwent a clot evacuation. Postoperatively he did well. Patient will be discharged home with Pierce catheter and follow up with Dr. Trevizo as an outpatient. Time Spent with Patient Time attestation: Total time spent providing and/or coordinating discharge services: Discharge Plan Discharge Attending physician on discharge: Soy Lowery Consulting providers: Rachele Irizarry ; Niels Barraza ; Regina Moreno Discharging Clinician: Regina Moreno Anticipated Discharge Date/Time: 07/31/20 13:43 Patient Disposition: Home, Self-Care Activity: may shower Diet: as tolerated Discharge Instructions: Follow up in our office on August 05 for your pierce catheter removal with Regina WATT at 9:45am. Expect some intermittent blood in the urine, pink to red is ok, and some small clots are ok, however if your catheter isn't draining or the blood becomes heavy over the weekend, please proceed to the ER. Then you will follow up with Dr. Lucien Trevizo your Urologist to have your stent removed and to discuss your bladder tumor pathology on August 26 at 8:00am. Our office is located at: [address] [place] [address] [address] [place] [address] Patient Instructions: Pierce Catheter Placement and Care (DC), Urinary Leg Bag (GEN) Stand Alone Forms: General Discharge Instructions Follow-up/Referrals: Soy Lowery MD [Physician] - Discharge Medications: New hydrocodone-acetaminophen 5-325 mg tablet 1 tablet PO .q6 PRN (Reason: pain) Qty: 20 RF: 0 nitrofurantoin macrocrystal 100 mg capsule 100 mg PO Q12H Qty: 14 RF: 0 Continued albuterol sulfate 90 mcg/actuation HFA aerosol inhaler 2 puff INHALATION DAILY PRN (Reason: Shortness Of Breath) RF: 0 nicotine [Nicoderm CQ] 21 mg/24 hr Patch 24 Hour 1 patch transdermal QAM Qty: 30 RF: 0 aspirin [Children's Aspirin] 81 mg Tablet,Chewable 81 mg PO DAILY@0800 Qty: 30 RF: 5 lisinopril 5 mg Tablet 5 mg PO DAILY Qty: 30 RF: 5 metoprolol succinate [Toprol XL] 25 mg Tablet Extended Release 24 Hr 25 mg PO QAM Qty: 30 RF: 5 rosuvastatin [Crestor] 10 mg Tablet 20 mg PO DAILY Qty: 30 RF: 5 Held Brilinta 90 mg Tablet 90 mg PO Q12HR Qty: 60 RF: 5 Hold Instructions: Resume on 08/01/20. Date of admission: 07/31/20 09:19 Primary Care Provider: Erma,Jeffrey Admitting Provider: Soy Lowery Attending physician on admission: Soy Lowery Condition: Stable
== END 2020-07-31 16:30 | disposition home or self-care (01) ==
LOC: ANHED 15:21 → ANHSURGERY 15:33 → ANH2MED 20:14 → ANHSURGERY 07-31 09:23 → ANH2MED 07-31 09:23
PROVIDERS: Physician Assistant; Admitting Provider Urology; Emergency Provider Emergency Medicine; PCP Family Medicine; Visit Provider Urology
PROC: 0TCB8ZZ Extirpation of Matter from Bladder, Via Natural or Artificial Opening Endoscopic (ICD-10-PCS; CPT 52001; principal; 2020-07-30 16:00)
DX: R33.8 Other retention of urine (principal); R31.0 Gross hematuria; C67.8 Malignant neoplasm of overlapping sites of bladder; I25.10 Atherosclerotic heart disease of native coronary artery without angina pectoris; J45.909 Unspecified asthma, uncomplicated; I25.2 Old myocardial infarction; E11.9 Type 2 diabetes mellitus without complications; Z95.0 Presence of cardiac pacemaker; Z79.51 Long term (current) use of inhaled steroids; Z95.5 Presence of coronary angioplasty implant and graft; F17.210 Nicotine dependence, cigarettes, uncomplicated; Z79.01 Long term (current) use of anticoagulants; Z79.82 Long term (current) use of aspirin; E66.9 Obesity, unspecified; Z68.32 Body mass index [BMI] 32.0-32.9, adult
CPT/HCPCS: 52332; 52214; 36415; 74420; 80048; 82948; 85014; 85018; 85025; 85610; 85730; 86850; 86900; 86901; 99285; A9270; C1758; C1769; C2617; G0378; G0379; J0690; J2250; J2405; J3010; J7120; Q9966

== ENCOUNTER 2020-11-21 13:06 | Outpatient (CLI) | payer OTHER, SELFPAY ==
--- NOTE | ~2020-11-21 | US_ITS ---
EXAMINATION: US carotid duplex BI DATE: 11/21/2020 13:44 INDICATION: Dizziness TECHNIQUE: Grayscale, color Doppler, and pulsed Doppler images of the cervical carotid arteries were obtained. The degree of vessel stenosis is placed in one of the following categories: normal, <50%, 5 0-69%, >=70% but less than near-occlusion, near-occlusion, or total occlusion. Note that percent sten osis relative to normal distal artery lumen diameter is indirectly measured from velocity measurement s as described by Rodriguez, et al. Radiology 2003; 229:340-346. Notes: Normal: Peak systolic velocity <125 centimeters/sec and no plaque <50%. Peak systolic velocity <125 ( EDV <40; ICA/CCA PSV ratio <2.0; used these factors only a tandem lesions or low cardiac output or co ntralateral disease) 50-69 %: PSV 125-230 (EDV 40-100; ratio 2-4) >= 70% but less than near occlusion: PSV greater than 230 (EDV > 100; ratio> 4.0) Near Occlusion: PSV that is variable; markedly narrowed lumen Occlusion: Absent flow on color/spectral Doppler and no lumen on jaramillo scale. COMPARISON: None. FINDINGS: RIGHT: The right common carotid artery (CCA) peak systolic velocity (PSV) is 85 cm/s. The right internal car otid artery (ICA) PSV is 92 cm/s. The right ICA end-diastolic velocity (EDV) is 30 cm/s. The right IC A/CCA PSV ratio is 1.1. The external carotid artery (ECA) PSV is 108 cm/s. There is antegrade flow in the right vertebral artery. LEFT: The left CCA PSV is 94 cm/s. The left ICA PSV is 72 cm/s. The left ICA EDV is 23 cm/s. The left ICA/C CA PSV ratio is 0.8. The ECA PSV is 128 cm/s. There is antegrade flow in the left vertebral artery. IMPRESSION: 1. Less than 50% stenosis in the right internal carotid artery by sonographic criteria. 2. Less than 50% stenosis in the left internal carotid artery by sonographic criteria. Reviewed, dictated and finalized at location A. IMPRESSION: 1. Less than 50% stenosis in the right internal carotid artery by sonographic rabia le. 2. Less than 50% stenosis in the left internal carotid artery by sonographic keaton carrasco.
== END 2020-11-21 13:07 | disposition home or self-care (01) ==
LOC: CHSIMG 13:08
PROVIDERS: PCP Family Medicine
DX: R42 Dizziness and giddiness (principal)
CPT/HCPCS: 93880

== ENCOUNTER 2021-03-09 07:42 | Outpatient (CLI) | payer OTHER, SELFPAY | END 2021-03-09 07:43 | disposition home or self-care (01) | LOC: ANHAUDIO 07:45 | PROVIDERS: PCP Family Medicine | DX: R42 Dizziness and giddiness (principal) | CPT/HCPCS: 99199 ==

== ENCOUNTER 2021-03-23 07:41 | Outpatient (CLI) | payer OTHER, SELFPAY | END 2021-03-23 07:42 | disposition home or self-care (01) | LOC: ANHAUDIO 07:42 | PROVIDERS: PCP Family Medicine; Visit Provider Family Medicine | DX: R42 Dizziness and giddiness (principal); I10 Essential (primary) hypertension | CPT/HCPCS: 92537; 92540; 92546; 92567 ==

== ENCOUNTER 2021-10-01 10:51 | Outpatient (CLI) | payer OTHER, SELFPAY ==
--- NOTE | ~2021-10-01 | XR_ITS ---
XR shoulder RT min 2V 10/01/2021 11:18 Indication: Right shoulder pain Procedure: 4 views right shoulder Comparison: No prior studies for comparison. Findings: There is mild polyarticular osteoarthritis of the right shoulder. No fracture or traumatic malalignment. No significant soft tissue abnormality. No foreign bodies. Impression: 1: Mild polyarticular osteoarthritis of the right shoulder. Reviewed, dictated and finalized at location A. Impression: 1: Mild polyarticular osteoarthritis of the right shoulder.
== END 2021-10-01 10:52 | disposition home or self-care (01) ==
LOC: CHSIMG 10:54
PROVIDERS: PCP Family Medicine; Visit Provider Family Medicine
DX: M25.511 Pain in right shoulder (principal); M19.011 Primary osteoarthritis, right shoulder
CPT/HCPCS: 73030

== ENCOUNTER 2022-01-11 12:34 | Outpatient (CLI) | payer OTHER, SELFPAY ==
[2022-01-11 13:00] LABS: HCO3 ABG 24.2 mmol/L (23-29); Oxygen Content ABG 20.5 %vol (16.0-22.0); Oxygen Saturation ABG 95.7 % (95-97); Oxyhemoglobin 90.6 % (94-100); PCO2 ABG 38.1 mmHg (35-45); PO2 ABG 75.6 mmHg (80-90); Total Hemoglobin 16.1 g/dL (12.0-18.0); pH ABG 7.42 (7.35-7.45)
[2022-01-11 13:01] LABS: Device ROOM AIR; Modified Allen's Test Pass; Site Drawn LEFT RADIAL
== END 2022-01-11 12:35 | disposition home or self-care (01) ==
LOC: CHSLAB 12:47
PROVIDERS: PCP Family Medicine; Visit Provider Family Medicine
DX: R06.02 Shortness of breath (principal)
CPT/HCPCS: 36600; 82805

== ENCOUNTER 2022-12-17 14:01 | Outpatient (CLI) | payer OTHER, SELFPAY ==
--- NOTE | ~2022-12-17 | US_ITS ---
US arterial ankle brachial ind INDICATION: Claudication TECHNIQUE: Segmental pressures and plethysmographic and Doppler waveforms of the brachial and lower e xtremity arteries were obtained. COMPARISON: None. FINDINGS: Right and left brachial artery pressures of 118 mm Hg and 110 mm Hg, respectively, are concordant (no rmal difference <= 30 mmHg). The right ankle-brachial index (GABE) is 1.23 (normal >= 0.9-1.0). The right great toe-brachial index (TBI) is 0.74 (normal >= 0.60). The left GABE is 1.25. The left TBI is 0.69. IMPRESSION: 1. Normal bilateral ankle-brachial indices. Reviewed, dictated and finalized at location A.
== END 2022-12-17 14:02 | disposition home or self-care (01) ==
PROVIDERS: PCP Family Medicine; Visit Provider Family Medicine
DX: I73.9 Peripheral vascular disease, unspecified (principal)
CPT/HCPCS: 93922